=== PATIENT | male | born 1965 | race African-American/Black ===

== ENCOUNTER 2018-08-13 15:53 | Inpatient (IN) | payer OTHER ==
[2018-08-13 17:28] VITALS: BMI 38.9
--- NOTE | 2018-08-13 20:15 | HP ---
Admission ROS [facility] Chief Complaint: Alcohol dependent patient seeking admission to Rehab. Allergies/Adverse Reactions: Allergies Allergy/AdvReac Type Severity Reaction Status Date / Time No Known Allergies Allergy Verified 09/15/14 16:42 History of Present Illness: 52 years old male with a history of alcohol dependence is seeking admission to Rehab. Patient has been in previous [facility]. and reports 3 years of sobriety. He has medical history of DM type 2, hypertension, hyperlipidemia, DVT, seizures, anxiety and depression. He denies suicide attempt and suicidal ideation at this time. Patient is status post detox at [facility]. Exam Limitations: No Limitations - Ebola screening Have you traveled outside of the country in the last 21 days: No Have you had contact with anyone from an Ebola affected area: No Have you been sick,other than usual withdrawal symptoms: No Do you have a fever: No - Review of Systems Constitutional: No Symptoms Reported EENT: reports: No Symptoms Reported Respiratory: reports: No Symptoms reported Cardiac: reports: No Symptoms Reported GI: reports: No Symptoms Reported : reports: No Symptoms Reported Musculoskeletal: reports: No Symptoms Reported Integumentary: reports: No Symptoms Reported Neuro: reports: No Symptoms reported Endocrine: reports: No Symptoms Reported Hematology: reports: No Symptoms Reported Psychiatric: reports: No Sypmtoms Reported, Mood/Affect Appropiate, Orientated x3 Other Systems: Reviewed and Negative Patient History - Patient Medical History Hx Anemia: No Hx Asthma: No Hx Chronic Obstructive Pulmonary Disease (COPD): No Hx Cancer: No Hx Cardiac Disorders: No Hx Congestive Heart Failure: No Hx Hypertension: Yes (Amlodipine) Hx Hypercholesterolemia: Yes (Lipitor) Hx Pacemaker: No HX Cerebrovascular Accident: No Hx Seizures: Yes (Not on medication) Hx Dementia: No Hx Diabetes: Yes (Metformin, Lantus Insulin) Hx Gastrointestinal Disorders: No Hx Liver Disease: No Hx Genitourinary Disorders: No Hx Sexually Transmitted Disorders: No Hx Renal Disease (ESRD): No Hx Thyroid Disease: No Hx Human Immunodeficiency Virus (HIV): No (Negative 2017) Hx Hepatitis C: No Hx Depression: Yes Hx Suicide Attempt: No (Denies suicide attempt or suicidal ideation at this time ) Hx Bipolar Disorder: No (Zoloft, Remeron, Trazodone, Benadryl) Hx Schizophrenia: No (Zoloft, Remeron, Trazodone, Benadry) Other Medical History: Anxiety - Not on medication - Patient Surgical History Past Surgical History: Yes Other Surgical History: LEFT ANKLE SURGERY IN 2004 Anesthesia Reaction: No - PPD History Previous Implant?: No Documented Results: Negative w/proof Date: 09/17/14 PPD to be Administered?: Yes - Reproductive History Patient is a Female of Child Bearing Age (11 -55 yrs old): No (Male) - Smoking Cessation Smoking history: Current every day smoker Have you smoked in the past 12 months: Yes Aproximately how many cigarettes per day: 10 Hx Chewing Tobacco Use: No Initiated information on smoking cessation: Yes 'Breaking Loose' booklet given: 08/13/18 - Substance & Tx. History Hx Alcohol Use: Yes Hx Substance Use: Yes Substance Use Type: Alcohol, Cocaine, Heroin, Marijuana, Opiates Family Disease History - Family Disease History Family History: Denies Admission Physical Exam BHS - Vital Signs Vital Signs: Vital Signs - 24 hr 08/13/18 17:25 Temperature 98.1 F Pulse Rate 110 H Respiratory 22 Rate Blood Pressure 156/93 - Physical General Appearance: Yes: No Apparent Distress, Nourished, Appropriately Dressed HEENTM: Yes: EOMI, Normal ENT Inspection, Normocephalic, Normal Voice, SCOOBY Respiratory: Yes: Lungs Clear, Normal Breath Sounds, No Respiratory Distress Neck: Yes: Supple Breast: Yes: Breast Exam Deferred Cardiology: Yes: Regular Rhythm, Regular Rate Abdominal: Yes: Normal Bowel Sounds, Soft Genitourinary: Yes: Within Normal Limits Back: Yes: Normal Inspection Musculoskeletal: Yes: full range of Motion, Back pain Extremities: Yes: Normal Inspection 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, Normal Mood/Affect Integumentary: Yes: Warm Lymphatic: Yes: Within Normal Limits - Diagnostic (1) Nicotine dependence Current Visit: Yes Status: Chronic (2) Seizures Current Visit: Yes Status: Chronic (3) Syncope Current Visit: Yes Status: Chronic (4) Alcohol dependence Current Visit: Yes Status: Chronic Qualifiers: Substance use status: uncomplicated Qualified Code(s): F10.20 - Alcohol dependence, uncomplicated (5) Cocaine dependence Current Visit: Yes Status: Chronic (6) Essential (primary) hypertension Current Visit: Yes Status: Chronic (7) Hyperlipidemia Current Visit: Yes Status: Chronic (8) Type 2 diabetes mellitus Current Visit: Yes Status: Chronic BHS Breath Alcohol Content Breath Alcohol Content: 0.016 Urine Drug Screen - Results Drug Screen Negative: No Urine Drug Screen Results: BZO-Benzodiazepines Inpatient Rehab Admission - Initial Determination Are CD services needed?: Yes Free of communicable disease: Yes Not in need of hospitalization: Yes - Rehab Admission Criteria Previous failed treatment: Yes Poor recovery environment: Yes Comorbidities: Yes Lacks judgement: No Patient is meeting Inpatient Rehab admission criteria:: Yes
[2018-08-13] MEDS ORDERED: IBUPROFEN 400 MG TABLET (FP) PO PRN (20:28)
[2018-08-13] MEDS ORDERED: MAGNESIUM CITRATE 300 ML BOTTLE PO PRN (20:28)
[2018-08-13] MEDS ORDERED: NICOTINE POLACRILEX 2 MG GUM BUC PRN (20:28)
[2018-08-13] MEDS ORDERED: LOPERAMIDE HCL 2 MG CAPSULE PO PRN (20:28)
[2018-08-13] MEDS ORDERED: P-EPHED 60MG/TRIPROLIDI 2.5MG TABLET PO PRN (20:28)
[2018-08-13] MEDS ORDERED: ACETAMINOPHEN 325 MG TABLET (FP) PO PRN (20:28)
[2018-08-13] MEDS ORDERED: MENTHOL/PHENOL 1 EACH UD MM PRN (20:28)
[2018-08-13] MEDS ORDERED: TUBERCULIN PPD 5 TU/0.1ML VIAL ID ONE (23:30)
[2018-08-13] MEDS: ATORVASTATIN CA 20 MG TABLET (FP) PO SCH (23:31)
[2018-08-13] MEDS: THIAMINE HCL 100 MG TABLET (FP) PO SCH (23:31)
[2018-08-14 03:29] LABS: URINE APPEARANCE SLCLOUDY; URINE BILIRUBIN NEGATIVE (<2.0 mg/dL); URINE COLOR YELLOW; URINE GLUCOSE (UA) 3+ (NEGATIVE); URINE KETONE NEGATIVE (NEGATIVE); URINE LEUK ESTERASE NEGATIVE (NEGATIVE); URINE NITRITE NEGATIVE (NEGATIVE); URINE PROTEIN NEGATIVE (NEGATIVE); URINE UROBILINOGEN NEGATIVE mg/dL (0.2-1.0)
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
[2018-08-14] MEDS: metFORMIN HCL 500 MG TABLET (FP) PO SCH ×2 (06:23→16:51)
[2018-08-14] MEDS: ASPIRIN COATED 81 MG TABLET.EC PO SCH (06:23)
[2018-08-14] MEDS: LISINOPRIL 10 MG TABLET (FP) PO SCH (06:23)
--- NOTE | 2018-08-14 08:01 | EKG ---
Test Reason : Blood Pressure : / mmHG Vent. Rate : 088 BPM Atrial Rate : 088 BPM P-R Int : 146 ms QRS Dur : 078 ms QT Int : 344 ms P-R-T Axes : 063 035 048 degrees QTc Int : 416 ms NORMAL SINUS RHYTHM NORMAL ECG NO PREVIOUS ECGS AVAILABLE Confirmed by JESUS BA, SUAD ([id number]) on 08/14/2018 8:01:33 AM Referred By: Confirmed By:SUAD LEE MD
[2018-08-14] MEDS: NICOTINE 14 MG/24 HOURS TOPICAL PATCH TD SCH (10:13)
[2018-08-14] MEDS: PRENATAL VITAMINS W/ FOLIC ACID TABLET (FP) PO SCH (10:13)
[2018-08-14] MEDS: HYDROCHLOROTHIAZIDE 25 MG TABLET (FP) PO SCH (10:13)
[2018-08-14 10:24] LABS: INR 1.64 (0.83-1.09); PROTHROMBIN TIME (PATIENT) 18.5 SEC (9.7-13.0)
[2018-08-14 10:26] LABS: ACTIVATED PTT 34.5 SECONDS (25.2-36.5)
[2018-08-14 10:28] LABS: HEMATOCRIT 40.9 % (35.4-49); HEMOGLOBIN 13.3 GM/dL (11.7-16.9); MCHC 32.4 g/dl (32.0-35.9); MEAN CELL VOLUME 92.6 fl (80-96); PLATELET COUNT 211 K/MM3 (134-434); RBC 4.42 M/mm3 (4.00-5.60); RDW 15.7 % (11.9-15.9); WHITE BLOOD COUNT 4.4 K/mm3 (4.0-10.0)
[2018-08-14 10:51] LABS: ALBUMIN 3.5 g/dl (3.4-5.0); ALK PHOS 126 U/L (45-117); ANION GAP 10 MMOL/L (8-16); BILIRUBIN,TOTAL 0.4 mg/dL (0.2-1); BLOOD UREA NITROGEN 10 mg/dL (7-18); CALCIUM 9.1 mg/dL (8.5-10.1); CHLORIDE 102 mmol/L (98-107); CO2 25 mmol/L (21-32); POTASSIUM 4.3 mmol/L (3.5-5.1); SGOT/AST 27 U/L (15-37); SGPT/ALT 50 U/L (13-61); SODIUM 137 mmol/L (136-145); TOT PROT 7.2 g/dl (6.4-8.2)
[2018-08-14 11:08] LABS: GLUCOSE,RANDOM 328 mg/dL (74-106)
[2018-08-14] MEDS: SERTRALINE HCL 50 MG TABLET (FP) PO SCH (12:00)
[2018-08-14 14:49] LABS: RPR REACTIVE 1:4 (NONREACTIVE)
[2018-08-14 14:50] LABS: TREPONEMA ANTIBODY PREVIOUSLY REACTIVE (NONREACTIVE)
--- NOTE | 2018-08-14 15:37 | PN ---
BHS Progress Note (SOAP) Subjective: Hx: DM: Patient states was taking Lantus 40 units daily in the evening while incarcerated. States when released from nursing home, relapsed and then ended up in [place] detox. At that time patient was not put back on Lantus but on coverage 4 times a day w/ the metformin. Hx. DVT in (R) leg. States chronic throbbing pain in (R) from ankle to calf. Was taking Coumadin daily. States continued on Coumadin while in detox. Denies chest pain. Patient states hx syphilis treated years ago. Objective: 08/14/18 15:37 A & O x 3. (R) leg w/ leathery darkened skin texture. Pedal pulses present. Vital Signs - 24 hr 08/13/18 08/14/18 08/14/18 17:25 00:30 03:30 Temperature 98.1 F Pulse Rate 110 H Respiratory 22 16 16 Rate Blood Pressure 156/93 08/14/18 08/14/18 07:07 10:00 Temperature 98 F Pulse Rate 74 83 Respiratory 18 18 Rate Blood Pressure 139/78 124/77 Abnormal Lab Results 08/13/18 08/14/18 08/14/18 23:25 08:30 08:30 PT with INR INR Random Glucose 328 H* Alkaline Phosphatase 126 H Urine Glucose (UA) 3+ H RPR Titer Reactive 1:4 H 08/14/18 08:30 PT with INR 18.50 H INR 1.64 H Random Glucose Alkaline Phosphatase Urine Glucose (UA) RPR Titer Labs reviewed Was admitted to [facility] in 2013 and RPR was 1:4. Current RPR is 1:4. Assessment: Was admitted to [facility] in 2013 and RPR was 1:4. Current RPR is 1:4. - No medication treatment needed based on Hx Hx: DVT. Plan: Start Coumadin Repeat INR/PT every other day. Patient instructed to notify staff of any bleeding Start Insulin glargine - start low and taper up as necessary Continue Metformin. BGM ACHS. Start Novalog sliding scale
[2018-08-14] MEDS ORDERED: INSULIN SLIDING SCALE (NOVOLOG) 1 VIAL SQ SCH (16:30)
[2018-08-14] MEDS: INSULIN SLIDING SCALE (NOVOLOG) 1 VIAL SQ SCH ×2 (16:52→21:41)
[2018-08-14] MEDS: WARFARIN NA 5 MG TABLET (UD) PO SCH (17:02)
[2018-08-14] MEDS ORDERED: MIRTAZAPINE 15 MG TABLET (FP) ONE (21:03)
[2018-08-14] MEDS ORDERED: MIRTAZAPINE 30 MG TABLET (FP) PO ONE (21:04)
[2018-08-14] MEDS: MIRTAZAPINE 30 MG, MIRTAZAPINE 15 MG PO SCH (21:41)
[2018-08-14] MEDS: THIAMINE HCL 100 MG TABLET (FP) PO SCH (21:41)
[2018-08-14] MEDS: ATORVASTATIN CA 20 MG TABLET (FP) PO SCH (21:41)
[2018-08-14] MEDS: MELATONIN 5 MG TABLETS PO PRN (21:41)
[2018-08-14] MEDS: INSULIN (LEVEMIR) 100 UNITS/ML UNITS SQ SCH (21:42)
[2018-08-14] MEDS ORDERED: MIRTAZAPINE 30 MG TABLET (FP) PO SCH (22:00)
[2018-08-14] MEDS ORDERED: INSULIN (NOVOLOG) ASPART 100 UNITS/ML 10ML VIAL ONE (22:21)
[2018-08-15] MEDS: LISINOPRIL 10 MG TABLET (FP) PO SCH (06:14)
[2018-08-15] MEDS: INSULIN SLIDING SCALE (NOVOLOG) 1 VIAL SQ SCH ×4 (06:14→21:29)
[2018-08-15] MEDS: metFORMIN HCL 500 MG TABLET (FP) PO SCH ×2 (06:14→16:51)
[2018-08-15] MEDS: ASPIRIN COATED 81 MG TABLET.EC PO SCH (06:14)
[2018-08-15] MEDS: NICOTINE 14 MG/24 HOURS TOPICAL PATCH TD SCH (09:48)
[2018-08-15] MEDS: PRENATAL VITAMINS W/ FOLIC ACID TABLET (FP) PO SCH (09:48)
[2018-08-15] MEDS: HYDROCHLOROTHIAZIDE 25 MG TABLET (FP) PO SCH (09:49)
[2018-08-15] MEDS: SERTRALINE HCL 50 MG TABLET (FP) PO SCH (09:49)
[2018-08-15] MEDS: MAG HYDROX/AL HYDROX/SIMETH 30 ML UNIT-DOSE CUP PO PRN (09:50)
[2018-08-15] MEDS ORDERED: INSULIN (NOVOLOG) ASPART 100 UNITS/ML 10ML VIAL SQ ONE (11:46)
--- NOTE | 2018-08-15 11:55 | PN ---
BHS Progress Note Note: 10units Novolog ordered STAT for pt's POC 428mg/dl. The need to maintain no concentrated sugar diet and avoiding juices will be reiterated with pt
[2018-08-15] MEDS: guaiFENesin/D-METHORPHAN HB 10 ML UNIT-DOSE CUPS PO PRN (16:56)
[2018-08-15] MEDS: WARFARIN NA 5 MG TABLET (UD) PO SCH (16:59)
[2018-08-15] MEDS ORDERED: MIRTAZAPINE 30 MG TABLET (FP) PO ONE (19:57)
[2018-08-15] MEDS ORDERED: MIRTAZAPINE 15 MG TABLET (FP) ONE (19:57)
[2018-08-15] MEDS: INSULIN (LEVEMIR) 100 UNITS/ML UNITS SQ SCH (21:29)
[2018-08-15] MEDS: MELATONIN 5 MG TABLETS PO PRN (21:30)
[2018-08-15] MEDS: MIRTAZAPINE 30 MG, MIRTAZAPINE 15 MG PO SCH (21:30)
[2018-08-15] MEDS: THIAMINE HCL 100 MG TABLET (FP) PO SCH (21:30)
[2018-08-15] MEDS: ATORVASTATIN CA 20 MG TABLET (FP) PO SCH (21:30)
[2018-08-16] MEDS: ASPIRIN COATED 81 MG TABLET.EC PO SCH (06:22)
[2018-08-16] MEDS: metFORMIN HCL 500 MG TABLET (FP) PO SCH ×2 (06:22→16:29)
[2018-08-16] MEDS: LISINOPRIL 10 MG TABLET (FP) PO SCH (06:22)
[2018-08-16] MEDS: INSULIN SLIDING SCALE (NOVOLOG) 1 VIAL SQ SCH ×4 (06:24→21:15)
[2018-08-16] MEDS: MAG HYDROX/AL HYDROX/SIMETH 30 ML UNIT-DOSE CUP PO PRN (07:41)
[2018-08-16] MEDS: HYDROCHLOROTHIAZIDE 25 MG TABLET (FP) PO SCH (09:50)
[2018-08-16] MEDS: NICOTINE 14 MG/24 HOURS TOPICAL PATCH TD SCH (09:50)
[2018-08-16] MEDS: SERTRALINE HCL 50 MG TABLET (FP) PO SCH (09:50)
[2018-08-16] MEDS: PRENATAL VITAMINS W/ FOLIC ACID TABLET (FP) PO SCH (09:50)
[2018-08-16 10:27] LABS: INR 2.12 (0.83-1.09)
[2018-08-16] MEDS ORDERED: INSULIN (NOVOLOG) ASPART 100 UNITS/ML 10ML VIAL SQ ONE (12:02)
[2018-08-16] MEDS ORDERED: INSULIN (NOVOLOG) ASPART 100 UNITS/ML 10ML VIAL ONE (16:29)
[2018-08-16] MEDS: WARFARIN NA 5 MG TABLET (UD) PO SCH (17:07)
[2018-08-16] MEDS ORDERED: MIRTAZAPINE 15 MG TABLET (FP) ONE (19:00)
[2018-08-16] MEDS ORDERED: MIRTAZAPINE 30 MG TABLET (FP) PO ONE (19:00)
[2018-08-16] MEDS: INSULIN (LEVEMIR) 100 UNITS/ML UNITS SQ SCH (21:14)
[2018-08-16] MEDS: ATORVASTATIN CA 20 MG TABLET (FP) PO SCH (21:15)
[2018-08-16] MEDS: MIRTAZAPINE 30 MG, MIRTAZAPINE 15 MG PO SCH (21:15)
[2018-08-16] MEDS: THIAMINE HCL 100 MG TABLET (FP) PO SCH (21:17)
[2018-08-16] MEDS: MELATONIN 5 MG TABLETS PO PRN (21:18)
[2018-08-16] MEDS: guaiFENesin/D-METHORPHAN HB 10 ML UNIT-DOSE CUPS PO PRN (21:18)
[2018-08-17] MEDS: ASPIRIN COATED 81 MG TABLET.EC PO SCH (06:06)
[2018-08-17] MEDS: LISINOPRIL 10 MG TABLET (FP) PO SCH (06:06)
[2018-08-17] MEDS ORDERED: INSULIN (NOVOLOG) ASPART 100 UNITS/ML 10ML VIAL ONE ×3 (07:14→22:18)
[2018-08-17] MEDS: INSULIN SLIDING SCALE (NOVOLOG) 1 VIAL SQ SCH ×4 (07:15→21:11)
[2018-08-17] MEDS: metFORMIN HCL 500 MG TABLET (FP) PO SCH ×2 (07:15→16:46)
[2018-08-17] MEDS: HYDROCHLOROTHIAZIDE 25 MG TABLET (FP) PO SCH (10:17)
[2018-08-17] MEDS: PRENATAL VITAMINS W/ FOLIC ACID TABLET (FP) PO SCH (10:17)
[2018-08-17] MEDS: SERTRALINE HCL 50 MG TABLET (FP) PO SCH (10:17)
[2018-08-17] MEDS: NICOTINE 14 MG/24 HOURS TOPICAL PATCH TD SCH (10:17)
[2018-08-17] MEDS: MAG HYDROX/AL HYDROX/SIMETH 30 ML UNIT-DOSE CUP PO PRN (11:57)
[2018-08-17] MEDS: WARFARIN NA 5 MG TABLET (UD) PO SCH (17:06)
[2018-08-17] MEDS ORDERED: MIRTAZAPINE 15 MG TABLET (FP) ONE (19:48)
[2018-08-17] MEDS ORDERED: MIRTAZAPINE 30 MG TABLET (FP) PO ONE (19:48)
[2018-08-17] MEDS: INSULIN (LEVEMIR) 100 UNITS/ML UNITS SQ SCH (21:11)
[2018-08-17] MEDS: THIAMINE HCL 100 MG TABLET (FP) PO SCH (21:12)
[2018-08-17] MEDS: MELATONIN 5 MG TABLETS PO PRN (21:12)
[2018-08-17] MEDS: MIRTAZAPINE 30 MG, MIRTAZAPINE 15 MG PO SCH (21:12)
[2018-08-17] MEDS: ATORVASTATIN CA 20 MG TABLET (FP) PO SCH (21:12)
[2018-08-18] MEDS: MAG HYDROX/AL HYDROX/SIMETH 30 ML UNIT-DOSE CUP PO PRN (02:45)
[2018-08-18] MEDS: LISINOPRIL 10 MG TABLET (FP) PO SCH (06:21)
[2018-08-18] MEDS: ASPIRIN COATED 81 MG TABLET.EC PO SCH (06:26)
[2018-08-18] MEDS ORDERED: INSULIN (NOVOLOG) ASPART 100 UNITS/ML 10ML VIAL ONE ×3 (07:06→22:17)
[2018-08-18] MEDS: metFORMIN HCL 500 MG TABLET (FP) PO SCH ×2 (07:06→16:51)
[2018-08-18] MEDS: INSULIN SLIDING SCALE (NOVOLOG) 1 VIAL SQ SCH ×4 (07:06→21:26)
--- NOTE | 2018-08-18 09:13 | PN ---
BHS Progress Note Note: c/o generalized abdominal discomfort with gas. Mylanta with minimal relief. Reports BM yesterday. denies n/v/d. Abdomen: soft, tender to palpate on all quadrants. Slightly distended. Pt with fatty abdomen. impression:dyspepsia plan:simethicone 80 mg po qid prn d/c mylanta
[2018-08-18] MEDS: HYDROCHLOROTHIAZIDE 25 MG TABLET (FP) PO SCH (09:52)
[2018-08-18] MEDS: SERTRALINE HCL 50 MG TABLET (FP) PO SCH (09:52)
[2018-08-18] MEDS: NICOTINE 14 MG/24 HOURS TOPICAL PATCH TD SCH (09:53)
[2018-08-18] MEDS: PRENATAL VITAMINS W/ FOLIC ACID TABLET (FP) PO SCH (09:53)
[2018-08-18 10:51] LABS: INR 2.05 (0.83-1.09); PROTHROMBIN TIME (PATIENT) 23.2 SEC (9.7-13.0)
--- NOTE | 2018-08-18 17:31 | PN ---
[facility] Progress Note Note: Vital Signs Temperature 97.9 F 08/18/18 07:05 Pulse Rate 90 08/18/18 09:30 Respiratory Rate 18 08/18/18 07:05 Blood Pressure 124/82 08/18/18 09:30 O2 Sat by Pulse Oximetry (%) Laboratory Last Values WBC 4.4 K/mm3 (4.0-10.0) 08/14/18 08:30 RBC 4.42 M/mm3 (4.00-5.60) 08/14/18 08:30 Hgb 13.3 GM/dL (11.7-16.9) 08/14/18 08:30 Hct 40.9 % (35.4-49) 08/14/18 08:30 MCV 92.6 fl (80-96) 08/14/18 08:30 MCH 30.0 pg (25.7-33.7) D 08/14/18 08:30 MCHC 32.4 g/dl (32.0-35.9) 08/14/18 08:30 RDW 15.7 % (11.9-15.9) D 08/14/18 08:30 Plt Count 211 K/MM3 (134-434) 08/14/18 08:30 MPV 9.0 fl (7.5-11.1) 08/14/18 08:30 PT with INR 23.20 SEC (9.7-13.0) H 08/18/18 07:00 INR 2.05 (0.83-1.09) H 08/18/18 07:00 PTT (Actin FS) 34.5 SECONDS (25.2-36.5) 08/14/18 08:30 Sodium 137 mmol/L (136-145) 08/14/18 08:30 Potassium 4.3 mmol/L (3.5-5.1) 08/14/18 08:30 Chloride 102 mmol/L (98-107) 08/14/18 08:30 Carbon Dioxide 25 mmol/L (21-32) 08/14/18 08:30 Anion Gap 10 MMOL/L (8-16) 08/14/18 08:30 BUN 10 mg/dL (7-18) 08/14/18 08:30 Creatinine 1.0 mg/dL (0.55-1.3) 08/14/18 08:30 Creat Clearance w eGFR > 60 (>60) 08/14/18 08:30 POC Glucometer 292 UNITS (80-120) 08/18/18 16:50 Random Glucose 328 mg/dL (74-106) H* 08/14/18 08:30 Calcium 9.1 mg/dL (8.5-10.1) 08/14/18 08:30 Total Bilirubin 0.4 mg/dL (0.2-1) 08/14/18 08:30 AST 27 U/L (15-37) 08/14/18 08:30 ALT 50 U/L (13-61) 08/14/18 08:30 Alkaline Phosphatase 126 U/L (45-117) H 08/14/18 08:30 Total Protein 7.2 g/dl (6.4-8.2) 08/14/18 08:30 Albumin 3.5 g/dl (3.4-5.0) 08/14/18 08:30 Urine Color Yellow 08/13/18 23:25 Urine Appearance Slcloudy 08/13/18 23:25 Urine pH 5.0 (5.0-8.0) 08/13/18 23:25 Ur Specific [place] 1.027 (1.001-1.035) 08/13/18 23:25 Urine Protein Negative (NEGATIVE) 08/13/18 23:25 Urine Glucose (UA) 3+ (NEGATIVE) H 08/13/18 23:25 Urine Ketones Negative (NEGATIVE) 08/13/18 23:25 Urine Blood Negative (NEGATIVE) 08/13/18 23:25 Urine Nitrite Negative (NEGATIVE) 08/13/18 23:25 Urine Bilirubin Negative (<2.0 mg/dL) 08/13/18 23:25 Urine Urobilinogen Negative mg/dL (0.2-1.0) 08/13/18 23:25 Ur Leukocyte Esterase Negative (NEGATIVE) 08/13/18 23:25 RPR Titer Reactive 1:4 (NONREACTIVE) H 08/14/18 08:30 T.pallidum Ab ([facility]) Previously reactive (NONREACTIVE) 08/14/18 08:30 INR within therapeutic range (2-3) continue INR/PT every other day. Patient instructed to notify staff of any bleeding continue to monitor
[2018-08-18] MEDS: WARFARIN NA 5 MG TABLET (UD) PO SCH (17:36)
[2018-08-18] MEDS ORDERED: MIRTAZAPINE 15 MG TABLET (FP) ONE (19:53)
[2018-08-18] MEDS ORDERED: MIRTAZAPINE 30 MG TABLET (FP) PO ONE (19:53)
[2018-08-18] MEDS: THIAMINE HCL 100 MG TABLET (FP) PO SCH (21:23)
[2018-08-18] MEDS: ATORVASTATIN CA 20 MG TABLET (FP) PO SCH (21:24)
[2018-08-18] MEDS: MELATONIN 5 MG TABLETS PO PRN (21:24)
[2018-08-18] MEDS: MIRTAZAPINE 30 MG, MIRTAZAPINE 15 MG PO SCH (21:24)
[2018-08-18] MEDS: INSULIN (LEVEMIR) 100 UNITS/ML UNITS SQ SCH (21:25)
[2018-08-18] MEDS: SIMETHICONE 80 MG TAB.CHEW (FP) PO PRN (21:27)
[2018-08-19] MEDS: SIMETHICONE 80 MG TAB.CHEW (FP) PO PRN (04:09)
[2018-08-19] MEDS: ASPIRIN COATED 81 MG TABLET.EC PO SCH (06:06)
[2018-08-19] MEDS: LISINOPRIL 10 MG TABLET (FP) PO SCH (06:06)
[2018-08-19] MEDS: MAGNESIUM HYDROX 2400MG/30ML ORAL SUSPENSION 30 ML CUP PO PRN ×2 (06:08→17:56)
[2018-08-19] MEDS ORDERED: INSULIN (NOVOLOG) ASPART 100 UNITS/ML 10ML VIAL ONE ×3 (07:04→17:00)
[2018-08-19] MEDS: metFORMIN HCL 500 MG TABLET (FP) PO SCH ×2 (07:05→16:43)
[2018-08-19] MEDS: INSULIN SLIDING SCALE (NOVOLOG) 1 VIAL SQ SCH ×4 (07:05→21:46)
[2018-08-19] MEDS: SERTRALINE HCL 50 MG TABLET (FP) PO SCH (09:54)
[2018-08-19] MEDS: HYDROCHLOROTHIAZIDE 25 MG TABLET (FP) PO SCH (09:54)
[2018-08-19] MEDS: PRENATAL VITAMINS W/ FOLIC ACID TABLET (FP) PO SCH (09:54)
[2018-08-19] MEDS: NICOTINE 14 MG/24 HOURS TOPICAL PATCH TD SCH (09:54)
--- NOTE | 2018-08-19 13:51 | PN ---
BHS Progress Note Note: PT REQUESTING SIMETHICONE CHANGE BACK TO MYLANTA. D/C SIMETHICONE REORDER MYLANTA DIRECTED.
[2018-08-19] MEDS: MAG HYDROX/AL HYDROX/SIMETH 30 ML UNIT-DOSE CUP PO PRN (14:55)
[2018-08-19] MEDS: WARFARIN NA 5 MG TABLET (UD) PO SCH (17:56)
[2018-08-19] MEDS ORDERED: MIRTAZAPINE 15 MG TABLET (FP) ONE (18:45)
[2018-08-19] MEDS ORDERED: MIRTAZAPINE 30 MG TABLET (FP) PO ONE (18:45)
[2018-08-19] MEDS: ATORVASTATIN CA 20 MG TABLET (FP) PO SCH (21:45)
[2018-08-19] MEDS: MIRTAZAPINE 30 MG, MIRTAZAPINE 15 MG PO SCH (21:45)
[2018-08-19] MEDS: INSULIN (LEVEMIR) 100 UNITS/ML UNITS SQ SCH (21:45)
[2018-08-19] MEDS: THIAMINE HCL 100 MG TABLET (FP) PO SCH (21:45)
[2018-08-19] MEDS: MELATONIN 5 MG TABLETS PO PRN (21:45)
[2018-08-20] MEDS: MAG HYDROX/AL HYDROX/SIMETH 30 ML UNIT-DOSE CUP PO PRN (05:07)
[2018-08-20] MEDS: LISINOPRIL 10 MG TABLET (FP) PO SCH (06:40)
[2018-08-20] MEDS: ASPIRIN COATED 81 MG TABLET.EC PO SCH (06:40)
[2018-08-20] MEDS: metFORMIN HCL 500 MG TABLET (FP) PO SCH ×2 (06:40→20:07)
[2018-08-20] MEDS: INSULIN SLIDING SCALE (NOVOLOG) 1 VIAL SQ SCH ×4 (06:42→21:04)
--- NOTE | 2018-08-20 09:26 | PN ---
[facility] Progress Note (SOAP) Subjective: 52 Y/O MALE ADMITTED AT [facility] FOR REHAB WITH A HX OF ALCOHOL AND MARIJUANA. PT HAS PAST MEDICAL HX OF HTN,DM, DVT,PE AND HYPERLIPIDEMIA. PT ON MEDS(SEE HOME MEDS). PT C/O SEVERE ABDOMINAL PAIN X 1 WEEK. UNABLE TO SLEEP LAST NIGHT DUE TO EXCRUCIATING PAIN. PT REPORTS MYLANTA OR ZANTAC DID NOT ALLEVIATE SYMPTOMS. REPORTS NBM+ LAST NIGHT.DENIES DIARRHEA BUT NAUSEA AND DRY HEAVES THIS MORNING. REPORTS A LITTLE BIT OF GASSY ABDOMEN. PT REPORTS CHILLS BUT NO FEVER. Objective: 08/20/18 09:29 Vital Signs 08/20/18 08/20/18 03:30 07:03 Temperature 98.0 F Pulse Rate 81 Respiratory 16 18 Rate Blood Pressure 139/90 Laboratory Tests 08/13/18 08/14/18 08/14/18 23:25 06:23 08:30 WBC 4.4 RBC 4.42 Hgb 13.3 Hct 40.9 MCV 92.6 MCH 30.0 D MCHC 32.4 RDW 15.7 D Plt Count 211 MPV 9.0 PT with INR INR PTT (Actin FS) Sodium Potassium Chloride Carbon Dioxide Anion Gap BUN Creatinine Creat Clearance w eGFR POC Glucometer 326 Random Glucose Calcium Total Bilirubin AST ALT Alkaline Phosphatase Total Protein Albumin Urine Color Yellow Urine Appearance Slcloudy Urine pH 5.0 Ur Specific [place] 1.027 Urine Protein Negative Urine Glucose (UA) 3+ H Urine Ketones Negative Urine Blood Negative Urine Nitrite Negative Urine Bilirubin Negative Urine Urobilinogen Negative Ur Leukocyte Esterase Negative RPR Titer T.pallidum Ab ([facility]) 08/14/18 08/14/18 08/14/18 08:30 08:30 08:30 WBC RBC Hgb Hct MCV MCH MCHC RDW Plt Count MPV PT with INR 18.50 H INR 1.64 H PTT (Actin FS) 34.5 Sodium 137 Potassium 4.3 Chloride 102 Carbon Dioxide 25 Anion Gap 10 BUN 10 Creatinine 1.0 Creat Clearance w eGFR > 60 POC Glucometer Random Glucose 328 H* Calcium 9.1 Total Bilirubin 0.4 AST 27 ALT 50 Alkaline Phosphatase 126 H Total Protein 7.2 Albumin 3.5 Urine Color Urine Appearance Urine pH Ur Specific [place] Urine Protein Urine Glucose (UA) Urine Ketones Urine Blood Urine Nitrite Urine Bilirubin Urine Urobilinogen Ur Leukocyte Esterase RPR Titer Reactive 1:4 H T.pallidum Ab ([facility]) Previously reactive 08/14/18 08/14/18 08/15/18 16:50 21:38 06:13 WBC RBC Hgb Hct MCV MCH MCHC RDW Plt Count MPV PT with INR INR PTT (Actin FS) Sodium Potassium Chloride Carbon Dioxide Anion Gap BUN Creatinine Creat Clearance w eGFR POC Glucometer 431 312 294 Random Glucose Calcium Total Bilirubin AST ALT Alkaline Phosphatase Total Protein Albumin Urine Color Urine Appearance Urine pH Ur Specific [place] Urine Protein Urine Glucose (UA) Urine Ketones Urine Blood Urine Nitrite Urine Bilirubin Urine Urobilinogen Ur Leukocyte Esterase RPR Titer T.pallidum Ab ([facility]) 08/15/18 08/15/18 08/15/18 11:41 16:52 21:28 WBC RBC Hgb Hct MCV MCH MCHC RDW Plt Count MPV PT with INR INR PTT (Actin FS) Sodium Potassium Chloride Carbon Dioxide Anion Gap BUN Creatinine Creat Clearance w eGFR POC Glucometer 428 274 414 Random Glucose Calcium Total Bilirubin AST ALT Alkaline Phosphatase Total Protein Albumin Urine Color Urine Appearance Urine pH Ur Specific [place] Urine Protein Urine Glucose (UA) Urine Ketones Urine Blood Urine Nitrite Urine Bilirubin Urine Urobilinogen Ur Leukocyte Esterase RPR Titer T.pallidum Ab ([facility]) 08/16/18 08/16/18 08/16/18 06:21 07:30 11:34 WBC RBC Hgb Hct MCV MCH MCHC RDW Plt Count MPV PT with INR 24.00 H INR 2.12 H PTT (Actin FS) Sodium Potassium Chloride Carbon Dioxide Anion Gap BUN Creatinine Creat Clearance w eGFR POC Glucometer 286 410 Random Glucose Calcium Total Bilirubin AST ALT Alkaline Phosphatase Total Protein Albumin Urine Color Urine Appearance Urine pH Ur Specific [place] Urine Protein Urine Glucose (UA) Urine Ketones Urine Blood Urine Nitrite Urine Bilirubin Urine Urobilinogen Ur Leukocyte Esterase RPR Titer T.pallidum Ab (A) 08/16/18 08/16/18 08/17/18 16:27 21:12 06:05 WBC RBC Hgb Hct MCV MCH MCHC RDW Plt Count MPV PT with INR INR PTT (Actin FS) Sodium Potassium Chloride Carbon Dioxide Anion Gap BUN Creatinine Creat Clearance w eGFR POC Glucometer 292 362 251 Random Glucose Calcium Total Bilirubin AST ALT Alkaline Phosphatase Total Protein Albumin Urine Color Urine Appearance Urine pH Ur Specific [place] Urine Protein Urine Glucose (UA) Urine Ketones Urine Blood Urine Nitrite Urine Bilirubin Urine Urobilinogen Ur Leukocyte Esterase RPR Titer T.pallidum Ab ([facility]) 08/17/18 08/17/18 08/17/18 11:40 16:45 21:09 WBC RBC Hgb Hct MCV MCH MCHC RDW Plt Count MPV PT with INR INR PTT (Actin FS) Sodium Potassium Chloride Carbon Dioxide Anion Gap BUN Creatinine Creat Clearance w eGFR POC Glucometer 336 318 285 Random Glucose Calcium Total Bilirubin AST ALT Alkaline Phosphatase Total Protein Albumin Urine Color Urine Appearance Urine pH Ur Specific [place] Urine Protein Urine Glucose (UA) Urine Ketones Urine Blood Urine Nitrite Urine Bilirubin Urine Urobilinogen Ur Leukocyte Esterase RPR Titer T.pallidum Ab ([facility]) 08/18/18 08/18/18 08/18/18 06:22 07:00 11:24 WBC RBC Hgb Hct MCV MCH MCHC RDW Plt Count MPV PT with INR 23.20 H INR 2.05 H PTT (Actin FS) Sodium Potassium Chloride Carbon Dioxide Anion Gap BUN Creatinine Creat Clearance w eGFR POC Glucometer 261 384 Random Glucose Calcium Total Bilirubin AST ALT Alkaline Phosphatase Total Protein Albumin Urine Color Urine Appearance Urine pH Ur Specific [place] Urine Protein Urine Glucose (UA) Urine Ketones Urine Blood Urine Nitrite Urine Bilirubin Urine Urobilinogen Ur Leukocyte Esterase RPR Titer T.pallidum Ab ([facility]) 08/18/18 08/18/18 08/19/18 16:50 21:22 06:04 WBC RBC Hgb Hct MCV MCH MCHC RDW Plt Count MPV PT with INR INR PTT (Actin FS) Sodium Potassium Chloride Carbon Dioxide Anion Gap BUN Creatinine Creat Clearance w eGFR POC Glucometer 292 304 298 Random Glucose Calcium Total Bilirubin AST ALT Alkaline Phosphatase Total Protein Albumin Urine Color Urine Appearance Urine pH Ur Specific [place] Urine Protein Urine Glucose (UA) Urine Ketones Urine Blood Urine Nitrite Urine Bilirubin Urine Urobilinogen Ur Leukocyte Esterase RPR Titer T.pallidum Ab ([facility]) 08/19/18 08/19/18 08/19/18 11:29 16:42 21:43 WBC RBC Hgb Hct MCV MCH MCHC RDW Plt Count MPV PT with INR INR PTT (Actin FS) Sodium Potassium Chloride Carbon Dioxide Anion Gap BUN Creatinine Creat Clearance w eGFR POC Glucometer 435 240 375 Random Glucose Calcium Total Bilirubin AST ALT Alkaline Phosphatase Total Protein Albumin Urine Color Urine Appearance Urine pH Ur Specific [place] Urine Protein Urine Glucose (UA) Urine Ketones Urine Blood Urine Nitrite Urine Bilirubin Urine Urobilinogen Ur Leukocyte Esterase RPR Titer T.pallidum Ab ([facility]) 08/20/18 06:39 WBC RBC Hgb Hct MCV MCH MCHC RDW Plt Count MPV PT with INR INR PTT (Actin FS) Sodium Potassium Chloride Carbon Dioxide Anion Gap BUN Creatinine Creat Clearance w eGFR POC Glucometer 306 Random Glucose Calcium Total Bilirubin AST ALT Alkaline Phosphatase Total Protein Albumin Urine Color Urine Appearance Urine pH Ur Specific [place] Urine Protein Urine Glucose (UA) Urine Ketones Urine Blood Urine Nitrite Urine Bilirubin Urine Urobilinogen Ur Leukocyte Esterase RPR Titer T.pallidum Ab ([facility]) ABDOMEN:BS+ ALL QUADRANTS.SLIGHTLY HYPOACTIVE AND DISTENDED, PAIN ON PALPATION. Assessment: 08/20/18 09:29 SEVERE ABDOMINAL PAIN Plan: TRANSFER TO [facility] ER VIA AMBULANCE FOR EVALUATION AND POSSIBLE TREATMENT. SPOKE TO TRAV TRIANA AT THE ER AT ABOUT 10:00 A.M.
[2018-08-20] MEDS: PRENATAL VITAMINS W/ FOLIC ACID TABLET (FP) PO SCH (10:12)
[2018-08-20] MEDS: SERTRALINE HCL 50 MG TABLET (FP) PO SCH (10:12)
[2018-08-20] MEDS: HYDROCHLOROTHIAZIDE 25 MG TABLET (FP) PO SCH (10:12)
[2018-08-20] MEDS: NICOTINE 14 MG/24 HOURS TOPICAL PATCH TD SCH (10:12)
[2018-08-20 10:41] LABS: INR 2.27 (0.83-1.09); PROTHROMBIN TIME (PATIENT) 25.6 SEC (9.7-13.0)
--- NOTE | 2018-08-20 16:32 | PN ---
[facility] Progress Note Note: Vital Signs Temperature 98.2 F 08/20/18 10:00 Pulse Rate 90 08/20/18 10:00 Respiratory Rate 20 08/20/18 10:00 Blood Pressure 141/84 08/20/18 10:00 O2 Sat by Pulse Oximetry (%) Called received from Bearluci Castellanos, re: patient medically cleared from [facility] ED for mild pancreatitis. Patient to follow a liquid diet in the next 24 hours. Patient to resume rehab.
[2018-08-20] MEDS: WARFARIN NA 5 MG TABLET (UD) PO SCH (20:07)
[2018-08-20] MEDS ORDERED: MIRTAZAPINE 30 MG TABLET (FP) PO ONE (20:08)
[2018-08-20] MEDS ORDERED: MIRTAZAPINE 15 MG TABLET (FP) ONE (20:08)
[2018-08-20] MEDS: MELATONIN 5 MG TABLETS PO PRN (21:04)
[2018-08-20] MEDS: MIRTAZAPINE 30 MG, MIRTAZAPINE 15 MG PO SCH (21:04)
[2018-08-20] MEDS: THIAMINE HCL 100 MG TABLET (FP) PO SCH (21:04)
[2018-08-20] MEDS: ATORVASTATIN CA 20 MG TABLET (FP) PO SCH (21:04)
[2018-08-20] MEDS: INSULIN (LEVEMIR) 100 UNITS/ML UNITS SQ SCH (21:05)
[2018-08-21] MEDS: DOCUSATE SODIUM 100 MG CAPSULE (FP) PO SCH ×3 (06:24→22:17)
[2018-08-21] MEDS: metFORMIN HCL 500 MG TABLET (FP) PO SCH ×2 (06:24→17:03)
[2018-08-21] MEDS: ASPIRIN COATED 81 MG TABLET.EC PO SCH (06:24)
[2018-08-21] MEDS: LISINOPRIL 10 MG TABLET (FP) PO SCH (06:24)
[2018-08-21] MEDS: INSULIN SLIDING SCALE (NOVOLOG) 1 VIAL SQ SCH ×4 (06:26→22:22)
[2018-08-21] MEDS ORDERED: INSULIN (NOVOLOG) ASPART 100 UNITS/ML 10ML VIAL ONE ×3 (07:10→17:11)
[2018-08-21] MEDS: MAG HYDROX/AL HYDROX/SIMETH 30 ML UNIT-DOSE CUP PO PRN ×2 (08:14→17:05)
[2018-08-21] MEDS: SERTRALINE HCL 50 MG TABLET (FP) PO SCH (10:22)
[2018-08-21] MEDS: NICOTINE 14 MG/24 HOURS TOPICAL PATCH TD SCH (10:22)
[2018-08-21] MEDS: HYDROCHLOROTHIAZIDE 25 MG TABLET (FP) PO SCH (10:22)
[2018-08-21] MEDS: PRENATAL VITAMINS W/ FOLIC ACID TABLET (FP) PO SCH (10:22)
[2018-08-21] MEDS: WARFARIN NA 5 MG TABLET (UD) PO SCH (18:53)
[2018-08-21] MEDS ORDERED: MIRTAZAPINE 30 MG TABLET (FP) PO ONE (20:16)
[2018-08-21] MEDS ORDERED: MIRTAZAPINE 15 MG TABLET (FP) ONE (20:16)
[2018-08-21] MEDS: ACETAMINOPHEN 325 MG TABLET (FP) PO PRN (20:18)
[2018-08-21] MEDS: ATORVASTATIN CA 20 MG TABLET (FP) PO SCH (22:17)
[2018-08-21] MEDS: MIRTAZAPINE 30 MG, MIRTAZAPINE 15 MG PO SCH (22:17)
[2018-08-21] MEDS: RANITIDINE HCL 150 MG TABLET (FP) PO SCH (22:17)
[2018-08-21] MEDS: INSULIN (LEVEMIR) 100 UNITS/ML UNITS SQ SCH (22:22)
[2018-08-21] MEDS ORDERED: INSULIN (LEVEMIR) 100 UNITS/ML UNITS SQ ONE (22:22)
[2018-08-21] MEDS: THIAMINE HCL 100 MG TABLET (FP) PO SCH (22:22)
[2018-08-22] MEDS: ACETAMINOPHEN 325 MG TABLET (FP) PO PRN ×4 (00:20→21:09)
[2018-08-22] MEDS: DOCUSATE SODIUM 100 MG CAPSULE (FP) PO SCH ×3 (05:58→21:08)
[2018-08-22] MEDS: MAG HYDROX/AL HYDROX/SIMETH 30 ML UNIT-DOSE CUP PO PRN ×2 (05:59→17:50)
[2018-08-22] MEDS: LISINOPRIL 10 MG TABLET (FP) PO SCH (06:00)
[2018-08-22] MEDS: ASPIRIN COATED 81 MG TABLET.EC PO SCH (06:00)
[2018-08-22] MEDS: metFORMIN HCL 500 MG TABLET (FP) PO SCH ×2 (07:11→16:53)
[2018-08-22] MEDS ORDERED: INSULIN (NOVOLOG) ASPART 100 UNITS/ML 10ML VIAL ONE ×2 (07:11→11:55)
[2018-08-22] MEDS: INSULIN SLIDING SCALE (NOVOLOG) 1 VIAL SQ SCH ×4 (07:11→21:08)
[2018-08-22] MEDS: HYDROCHLOROTHIAZIDE 25 MG TABLET (FP) PO SCH (09:10)
[2018-08-22] MEDS: RANITIDINE HCL 150 MG TABLET (FP) PO SCH ×2 (09:10→21:08)
[2018-08-22] MEDS: SERTRALINE HCL 50 MG TABLET (FP) PO SCH (09:10)
[2018-08-22] MEDS: NICOTINE 14 MG/24 HOURS TOPICAL PATCH TD SCH (09:11)
[2018-08-22] MEDS: PRENATAL VITAMINS W/ FOLIC ACID TABLET (FP) PO SCH (09:11)
[2018-08-22 11:44] LABS: INR 1.8 (0.83-1.09); PROTHROMBIN TIME (PATIENT) 21.4 SEC (9.7-13.0)
[2018-08-22] MEDS: WARFARIN NA 5 MG TABLET (UD) PO SCH (17:06)
[2018-08-22] MEDS ORDERED: MIRTAZAPINE 15 MG TABLET (FP) ONE (20:11)
[2018-08-22] MEDS ORDERED: MIRTAZAPINE 30 MG TABLET (FP) PO ONE (20:11)
[2018-08-22] MEDS: INSULIN (LEVEMIR) 100 UNITS/ML UNITS SQ SCH (21:07)
[2018-08-22] MEDS: ATORVASTATIN CA 20 MG TABLET (FP) PO SCH (21:08)
[2018-08-22] MEDS: MIRTAZAPINE 30 MG, MIRTAZAPINE 15 MG PO SCH (21:08)
[2018-08-22] MEDS: MELATONIN 5 MG TABLETS PO PRN (21:08)
[2018-08-22] MEDS: THIAMINE HCL 100 MG TABLET (FP) PO SCH (21:10)
[2018-08-23] MEDS: ACETAMINOPHEN 325 MG TABLET (FP) PO PRN ×3 (02:18→11:57)
[2018-08-23] MEDS: ASPIRIN COATED 81 MG TABLET.EC PO SCH (06:13)
[2018-08-23] MEDS: LISINOPRIL 10 MG TABLET (FP) PO SCH (06:13)
[2018-08-23] MEDS: MAG HYDROX/AL HYDROX/SIMETH 30 ML UNIT-DOSE CUP PO PRN ×3 (06:13→19:51)
[2018-08-23] MEDS: INSULIN SLIDING SCALE (NOVOLOG) 1 VIAL SQ SCH ×4 (06:46→21:17)
[2018-08-23] MEDS: metFORMIN HCL 500 MG TABLET (FP) PO SCH ×2 (06:46→16:41)
[2018-08-23] MEDS: DOCUSATE SODIUM 100 MG CAPSULE (FP) PO SCH ×3 (06:47→21:14)
[2018-08-23] MEDS ORDERED: INSULIN (NOVOLOG) ASPART 100 UNITS/ML 10ML VIAL ONE ×3 (06:50→22:00)
[2018-08-23] MEDS: PRENATAL VITAMINS W/ FOLIC ACID TABLET (FP) PO SCH (09:57)
[2018-08-23] MEDS: SERTRALINE HCL 50 MG TABLET (FP) PO SCH (09:57)
[2018-08-23] MEDS: NICOTINE 14 MG/24 HOURS TOPICAL PATCH TD SCH (09:57)
[2018-08-23] MEDS: HYDROCHLOROTHIAZIDE 25 MG TABLET (FP) PO SCH (09:57)
[2018-08-23] MEDS: RANITIDINE HCL 150 MG TABLET (FP) PO SCH ×2 (09:57→21:17)
--- NOTE | 2018-08-23 11:38 | PN ---
[facility] Progress Note Note: inr 1.80 on 08/22/18 coumadin 10 mgs po daily,repeat inr in am
[2018-08-23] MEDS: WARFARIN NA 5 MG TABLET (UD) PO SCH (17:36)
[2018-08-23] MEDS ORDERED: MIRTAZAPINE 30 MG TABLET (FP) PO ONE (20:19)
[2018-08-23] MEDS ORDERED: MIRTAZAPINE 15 MG TABLET (FP) ONE (20:19)
[2018-08-23] MEDS: MELATONIN 5 MG TABLETS PO PRN (21:14)
[2018-08-23] MEDS: THIAMINE HCL 100 MG TABLET (FP) PO SCH (21:14)
[2018-08-23] MEDS: ATORVASTATIN CA 20 MG TABLET (FP) PO SCH (21:15)
[2018-08-23] MEDS: INSULIN (LEVEMIR) 100 UNITS/ML UNITS SQ SCH (21:16)
[2018-08-23] MEDS: MIRTAZAPINE 30 MG, MIRTAZAPINE 15 MG PO SCH (21:16)
[2018-08-24] MEDS ORDERED: PT OWN MED DRAWER 7, Y5N ONE (03:25)
[2018-08-24] MEDS: LISINOPRIL 10 MG TABLET (FP) PO SCH (06:27)
[2018-08-24] MEDS: metFORMIN HCL 500 MG TABLET (FP) PO SCH ×2 (06:27→16:58)
[2018-08-24] MEDS: ASPIRIN COATED 81 MG TABLET.EC PO SCH (06:27)
[2018-08-24] MEDS: DOCUSATE SODIUM 100 MG CAPSULE (FP) PO SCH ×3 (06:27→21:38)
[2018-08-24] MEDS: INSULIN SLIDING SCALE (NOVOLOG) 1 VIAL SQ SCH ×4 (06:29→21:38)
[2018-08-24] MEDS ORDERED: INSULIN (NOVOLOG) ASPART 100 UNITS/ML 10ML VIAL ONE ×4 (06:42→22:22)
[2018-08-24] MEDS: SERTRALINE HCL 50 MG TABLET (FP) PO SCH (09:19)
[2018-08-24] MEDS: HYDROCHLOROTHIAZIDE 25 MG TABLET (FP) PO SCH (09:19)
[2018-08-24] MEDS: ACETAMINOPHEN 325 MG TABLET (FP) PO PRN ×3 (09:19→22:30)
[2018-08-24] MEDS: RANITIDINE HCL 150 MG TABLET (FP) PO SCH ×2 (09:19→21:38)
[2018-08-24] MEDS: NICOTINE 14 MG/24 HOURS TOPICAL PATCH TD SCH (09:20)
[2018-08-24] MEDS: MAGNESIUM HYDROX 2400MG/30ML ORAL SUSPENSION 30 ML CUP PO PRN (09:20)
[2018-08-24] MEDS: PRENATAL VITAMINS W/ FOLIC ACID TABLET (FP) PO SCH (09:20)
[2018-08-24 10:29] LABS: INR 2.35 (0.83-1.09)
[2018-08-24] MEDS: WARFARIN NA 5 MG TABLET (UD) PO SCH (18:51)
[2018-08-24] MEDS ORDERED: MIRTAZAPINE 15 MG TABLET (FP) ONE (20:46)
[2018-08-24] MEDS ORDERED: MIRTAZAPINE 30 MG TABLET (FP) PO ONE (20:47)
[2018-08-24] MEDS: MIRTAZAPINE 30 MG, MIRTAZAPINE 15 MG PO SCH (21:38)
[2018-08-24] MEDS: THIAMINE HCL 100 MG TABLET (FP) PO SCH (21:38)
[2018-08-24] MEDS: ATORVASTATIN CA 20 MG TABLET (FP) PO SCH (21:38)
[2018-08-24] MEDS: INSULIN (LEVEMIR) 100 UNITS/ML UNITS SQ SCH (21:40)
[2018-08-25] MEDS: DOCUSATE SODIUM 100 MG CAPSULE (FP) PO SCH ×3 (06:20→21:06)
[2018-08-25] MEDS: LISINOPRIL 10 MG TABLET (FP) PO SCH (06:20)
[2018-08-25] MEDS: metFORMIN HCL 500 MG TABLET (FP) PO SCH ×2 (06:20→16:46)
[2018-08-25] MEDS: ASPIRIN COATED 81 MG TABLET.EC PO SCH (06:21)
[2018-08-25] MEDS: INSULIN SLIDING SCALE (NOVOLOG) 1 VIAL SQ SCH ×4 (06:23→21:07)
[2018-08-25] MEDS ORDERED: CYCLOBENZAPRINE HCL 10 MG TABLET (FP) PO ONE (10:15)
[2018-08-25] MEDS: PRENATAL VITAMINS W/ FOLIC ACID TABLET (FP) PO SCH (10:24)
[2018-08-25] MEDS: NICOTINE 14 MG/24 HOURS TOPICAL PATCH TD SCH (10:24)
[2018-08-25] MEDS: HYDROCHLOROTHIAZIDE 25 MG TABLET (FP) PO SCH (10:24)
[2018-08-25] MEDS: RANITIDINE HCL 150 MG TABLET (FP) PO SCH ×2 (10:24→21:06)
[2018-08-25] MEDS: SERTRALINE HCL 50 MG TABLET (FP) PO SCH (10:24)
[2018-08-25] MEDS ORDERED: INSULIN (NOVOLOG) ASPART 100 UNITS/ML 10ML VIAL ONE ×2 (11:47→21:52)
[2018-08-25] MEDS: ACETAMINOPHEN 325 MG TABLET (FP) PO PRN (11:50)
[2018-08-25] MEDS: CYCLOBENZAPRINE HCL 10 MG TABLET (FP) PO SCH ×2 (14:25→21:05)
[2018-08-25] MEDS: WARFARIN NA 5 MG TABLET (UD) PO SCH (18:12)
[2018-08-25] MEDS ORDERED: MIRTAZAPINE 15 MG TABLET (FP) ONE (20:05)
[2018-08-25] MEDS ORDERED: MIRTAZAPINE 30 MG TABLET (FP) PO ONE (20:06)
[2018-08-25] MEDS: THIAMINE HCL 100 MG TABLET (FP) PO SCH (21:05)
[2018-08-25] MEDS: MIRTAZAPINE 30 MG, MIRTAZAPINE 15 MG PO SCH (21:05)
[2018-08-25] MEDS: INSULIN (LEVEMIR) 100 UNITS/ML UNITS SQ SCH (21:06)
[2018-08-25] MEDS: ATORVASTATIN CA 20 MG TABLET (FP) PO SCH (21:06)
[2018-08-25] MEDS: MAGNESIUM HYDROX 2400MG/30ML ORAL SUSPENSION 30 ML CUP PO PRN (21:09)
[2018-08-26] MEDS: LISINOPRIL 10 MG TABLET (FP) PO SCH (06:12)
[2018-08-26] MEDS: metFORMIN HCL 500 MG TABLET (FP) PO SCH ×2 (06:12→16:46)
[2018-08-26] MEDS: DOCUSATE SODIUM 100 MG CAPSULE (FP) PO SCH ×3 (06:12→21:35)
[2018-08-26] MEDS: CYCLOBENZAPRINE HCL 10 MG TABLET (FP) PO SCH ×3 (06:12→21:35)
[2018-08-26] MEDS ORDERED: INSULIN (NOVOLOG) ASPART 100 UNITS/ML 10ML VIAL ONE ×4 (07:02→21:52)
[2018-08-26] MEDS: INSULIN SLIDING SCALE (NOVOLOG) 1 VIAL SQ SCH ×4 (07:12→21:37)
[2018-08-26] MEDS: PRENATAL VITAMINS W/ FOLIC ACID TABLET (FP) PO SCH (09:53)
[2018-08-26] MEDS: SERTRALINE HCL 50 MG TABLET (FP) PO SCH (09:53)
[2018-08-26] MEDS: RANITIDINE HCL 150 MG TABLET (FP) PO SCH ×2 (09:53→21:35)
[2018-08-26] MEDS: NICOTINE 14 MG/24 HOURS TOPICAL PATCH TD SCH (09:53)
[2018-08-26] MEDS: HYDROCHLOROTHIAZIDE 25 MG TABLET (FP) PO SCH (09:53)
[2018-08-26 10:41] LABS: INR 2.94 (0.83-1.09); PROTHROMBIN TIME (PATIENT) 35.1 SEC (9.7-13.0)
[2018-08-26] MEDS: WARFARIN NA 5 MG TABLET (UD) PO SCH (17:01)
[2018-08-26] MEDS ORDERED: MIRTAZAPINE 15 MG TABLET (FP) ONE (20:30)
[2018-08-26] MEDS ORDERED: MIRTAZAPINE 30 MG TABLET (FP) PO ONE (20:31)
[2018-08-26] MEDS: INSULIN (LEVEMIR) 100 UNITS/ML UNITS SQ SCH (21:33)
[2018-08-26] MEDS: THIAMINE HCL 100 MG TABLET (FP) PO SCH (21:35)
[2018-08-26] MEDS: ACETAMINOPHEN 325 MG TABLET (FP) PO PRN (21:35)
[2018-08-26] MEDS: MIRTAZAPINE 30 MG, MIRTAZAPINE 15 MG PO SCH (21:35)
[2018-08-26] MEDS: ATORVASTATIN CA 20 MG TABLET (FP) PO SCH (21:35)
[2018-08-27] MEDS: CYCLOBENZAPRINE HCL 10 MG TABLET (FP) PO SCH ×3 (06:20→21:07)
[2018-08-27] MEDS: LISINOPRIL 10 MG TABLET (FP) PO SCH (06:20)
[2018-08-27] MEDS: DOCUSATE SODIUM 100 MG CAPSULE (FP) PO SCH ×3 (06:20→21:07)
[2018-08-27] MEDS: metFORMIN HCL 500 MG TABLET (FP) PO SCH ×2 (06:20→16:48)
[2018-08-27] MEDS: INSULIN SLIDING SCALE (NOVOLOG) 1 VIAL SQ SCH ×4 (06:21→21:07)
[2018-08-27] MEDS: MAGNESIUM HYDROX 2400MG/30ML ORAL SUSPENSION 30 ML CUP PO PRN ×2 (07:20→14:50)
[2018-08-27] MEDS: ACETAMINOPHEN 325 MG TABLET (FP) PO PRN ×2 (07:21→14:50)
[2018-08-27] MEDS ORDERED: INSULIN (NOVOLOG) ASPART 100 UNITS/ML 10ML VIAL ONE ×3 (07:23→22:13)
[2018-08-27] MEDS: SERTRALINE HCL 50 MG TABLET (FP) PO SCH (09:41)
[2018-08-27] MEDS: HYDROCHLOROTHIAZIDE 25 MG TABLET (FP) PO SCH (09:41)
[2018-08-27] MEDS: RANITIDINE HCL 150 MG TABLET (FP) PO SCH ×2 (09:41→21:08)
[2018-08-27] MEDS: PRENATAL VITAMINS W/ FOLIC ACID TABLET (FP) PO SCH (09:41)
[2018-08-27] MEDS: NICOTINE 14 MG/24 HOURS TOPICAL PATCH TD SCH (09:41)
--- NOTE | 2018-08-27 13:46 | PN ---
[facility] Progress Note Note: PT REQUESTING TO DECREASE BGM TO BID. Vital Signs 08/27/18 06:47 Temperature 98.2 F Pulse Rate 112 H Respiratory 20 Rate Blood Pressure 125/87 Laboratory Tests 08/13/18 08/14/18 08/14/18 23:25 06:23 08:30 WBC 4.4 RBC 4.42 Hgb 13.3 Hct 40.9 MCV 92.6 MCH 30.0 D MCHC 32.4 RDW 15.7 D Plt Count 211 MPV 9.0 PT with INR INR PTT (Actin FS) Sodium Potassium Chloride Carbon Dioxide Anion Gap BUN Creatinine Creat Clearance w eGFR POC Glucometer 326 Random Glucose Calcium Total Bilirubin AST ALT Alkaline Phosphatase Total Protein Albumin Urine Color Yellow Urine Appearance Slcloudy Urine pH 5.0 Ur Specific [place] 1.027 Urine Protein Negative Urine Glucose (UA) 3+ H Urine Ketones Negative Urine Blood Negative Urine Nitrite Negative Urine Bilirubin Negative Urine Urobilinogen Negative Ur Leukocyte Esterase Negative RPR Titer T.pallidum Ab (MHA) 08/14/18 08/14/18 08/14/18 08:30 08:30 08:30 WBC RBC Hgb Hct MCV MCH MCHC RDW Plt Count MPV PT with INR 18.50 H INR 1.64 H PTT (Actin FS) 34.5 Sodium 137 Potassium 4.3 Chloride 102 Carbon Dioxide 25 Anion Gap 10 BUN 10 Creatinine 1.0 Creat Clearance w eGFR > 60 POC Glucometer Random Glucose 328 H* Calcium 9.1 Total Bilirubin 0.4 AST 27 ALT 50 Alkaline Phosphatase 126 H Total Protein 7.2 Albumin 3.5 Urine Color Urine Appearance Urine pH Ur Specific [place] Urine Protein Urine Glucose (UA) Urine Ketones Urine Blood Urine Nitrite Urine Bilirubin Urine Urobilinogen Ur Leukocyte Esterase RPR Titer Reactive 1:4 H T.pallidum Ab (MHA) Previously reactive 08/14/18 08/14/18 08/15/18 16:50 21:38 06:13 WBC RBC Hgb Hct MCV MCH MCHC RDW Plt Count MPV PT with INR INR PTT (Actin FS) Sodium Potassium Chloride Carbon Dioxide Anion Gap BUN Creatinine Creat Clearance w eGFR POC Glucometer [phone] Random Glucose Calcium Total Bilirubin AST ALT Alkaline Phosphatase Total Protein Albumin Urine Color Urine Appearance Urine pH Ur Specific [place] Urine Protein Urine Glucose (UA) Urine Ketones Urine Blood Urine Nitrite Urine Bilirubin Urine Urobilinogen Ur Leukocyte Esterase RPR Titer T.pallidum Ab (A) 08/15/18 08/15/18 08/15/18 11:41 16:52 21:28 WBC RBC Hgb Hct MCV MCH MCHC RDW Plt Count MPV PT with INR INR PTT (Actin FS) Sodium Potassium Chloride Carbon Dioxide Anion Gap BUN Creatinine Creat Clearance w eGFR POC Glucometer 428 274 414 Random Glucose Calcium Total Bilirubin AST ALT Alkaline Phosphatase Total Protein Albumin Urine Color Urine Appearance Urine pH Ur Specific [place] Urine Protein Urine Glucose (UA) Urine Ketones Urine Blood Urine Nitrite Urine Bilirubin Urine Urobilinogen Ur Leukocyte Esterase RPR Titer T.pallidum Ab ([facility]) 08/16/18 08/16/18 08/16/18 06:21 07:30 11:34 WBC RBC Hgb Hct MCV MCH MCHC RDW Plt Count MPV PT with INR 24.00 H INR 2.12 H PTT (Actin FS) Sodium Potassium Chloride Carbon Dioxide Anion Gap BUN Creatinine Creat Clearance w eGFR POC Glucometer 286 410 Random Glucose Calcium Total Bilirubin AST ALT Alkaline Phosphatase Total Protein Albumin Urine Color Urine Appearance Urine pH Ur Specific [place] Urine Protein Urine Glucose (UA) Urine Ketones Urine Blood Urine Nitrite Urine Bilirubin Urine Urobilinogen Ur Leukocyte Esterase RPR Titer T.pallidum Ab ([facility]) 08/16/18 08/16/18 08/17/18 16:27 21:12 06:05 WBC RBC Hgb Hct MCV MCH MCHC RDW Plt Count MPV PT with INR INR PTT (Actin FS) Sodium Potassium Chloride Carbon Dioxide Anion Gap BUN Creatinine Creat Clearance w eGFR POC Glucometer 292 362 251 Random Glucose Calcium Total Bilirubin AST ALT Alkaline Phosphatase Total Protein Albumin Urine Color Urine Appearance Urine pH Ur Specific [place] Urine Protein Urine Glucose (UA) Urine Ketones Urine Blood Urine Nitrite Urine Bilirubin Urine Urobilinogen Ur Leukocyte Esterase RPR Titer T.pallidum Ab (A) 08/17/18 08/17/18 08/17/18 11:40 16:45 21:09 WBC RBC Hgb Hct MCV MCH MCHC RDW Plt Count MPV PT with INR INR PTT (Actin FS) Sodium Potassium Chloride Carbon Dioxide Anion Gap BUN Creatinine Creat Clearance w eGFR POC Glucometer 336 318 285 Random Glucose Calcium Total Bilirubin AST ALT Alkaline Phosphatase Total Protein Albumin Urine Color Urine Appearance Urine pH Ur Specific [place] Urine Protein Urine Glucose (UA) Urine Ketones Urine Blood Urine Nitrite Urine Bilirubin Urine Urobilinogen Ur Leukocyte Esterase RPR Titer T.pallidum Ab (A) 08/18/18 08/18/18 08/18/18 06:22 07:00 11:24 WBC RBC Hgb Hct MCV MCH MCHC RDW Plt Count MPV PT with INR 23.20 H INR 2.05 H PTT (Actin FS) Sodium Potassium Chloride Carbon Dioxide Anion Gap BUN Creatinine Creat Clearance w eGFR POC Glucometer 261 384 Random Glucose Calcium Total Bilirubin AST ALT Alkaline Phosphatase Total Protein Albumin Urine Color Urine Appearance Urine pH Ur Specific [place] Urine Protein Urine Glucose (UA) Urine Ketones Urine Blood Urine Nitrite Urine Bilirubin Urine Urobilinogen Ur Leukocyte Esterase RPR Titer T.pallidum Ab ([facility]) 08/18/18 08/18/18 08/19/18 16:50 21:22 06:04 WBC RBC Hgb Hct MCV MCH MCHC RDW Plt Count MPV PT with INR INR PTT (Actin FS) Sodium Potassium Chloride Carbon Dioxide Anion Gap BUN Creatinine Creat Clearance w eGFR POC Glucometer 292 304 298 Random Glucose Calcium Total Bilirubin AST ALT Alkaline Phosphatase Total Protein Albumin Urine Color Urine Appearance Urine pH Ur Specific [place] Urine Protein Urine Glucose (UA) Urine Ketones Urine Blood Urine Nitrite Urine Bilirubin Urine Urobilinogen Ur Leukocyte Esterase RPR Titer T.pallidum Ab ([facility]) 08/19/18 08/19/18 08/19/18 11:29 16:42 21:43 WBC RBC Hgb Hct MCV MCH MCHC RDW Plt Count MPV PT with INR INR PTT (Actin FS) Sodium Potassium Chloride Carbon Dioxide Anion Gap BUN Creatinine Creat Clearance w eGFR POC Glucometer 435 240 375 Random Glucose Calcium Total Bilirubin AST ALT Alkaline Phosphatase Total Protein Albumin Urine Color Urine Appearance Urine pH Ur Specific [place] Urine Protein Urine Glucose (UA) Urine Ketones Urine Blood Urine Nitrite Urine Bilirubin Urine Urobilinogen Ur Leukocyte Esterase RPR Titer T.pallidum Ab ([facility]) 08/20/18 08/20/18 08/20/18 06:39 08:30 17:04 WBC RBC Hgb Hct MCV MCH MCHC RDW Plt Count MPV PT with INR 25.60 H INR 2.27 H PTT (Actin FS) Sodium Potassium Chloride Carbon Dioxide Anion Gap BUN Creatinine Creat Clearance w eGFR POC Glucometer [phone] Random Glucose Calcium Total Bilirubin AST ALT Alkaline Phosphatase Total Protein Albumin Urine Color Urine Appearance Urine pH Ur Specific [place] Urine Protein Urine Glucose (UA) Urine Ketones Urine Blood Urine Nitrite Urine Bilirubin Urine Urobilinogen Ur Leukocyte Esterase RPR Titer T.pallidum Ab ([facility]) 08/20/18 08/21/18 08/21/18 21:02 06:23 11:45 WBC RBC Hgb Hct MCV MCH MCHC RDW Plt Count MPV PT with INR INR PTT (Actin FS) Sodium Potassium Chloride Carbon Dioxide Anion Gap BUN Creatinine Creat Clearance w eGFR POC Glucometer 332 262 267 Random Glucose Calcium Total Bilirubin AST ALT Alkaline Phosphatase Total Protein Albumin Urine Color Urine Appearance Urine pH Ur Specific [place] Urine Protein Urine Glucose (UA) Urine Ketones Urine Blood Urine Nitrite Urine Bilirubin Urine Urobilinogen Ur Leukocyte Esterase RPR Titer T.pallidum Ab ([facility]) 08/21/18 08/21/18 08/22/18 17:01 22:19 05:55 WBC RBC Hgb Hct MCV MCH MCHC RDW Plt Count MPV PT with INR INR PTT (Actin FS) Sodium Potassium Chloride Carbon Dioxide Anion Gap BUN Creatinine Creat Clearance w eGFR POC Glucometer 315 337 292 Random Glucose Calcium Total Bilirubin AST ALT Alkaline Phosphatase Total Protein Albumin Urine Color Urine Appearance Urine pH Ur Specific [place] Urine Protein Urine Glucose (UA) Urine Ketones Urine Blood Urine Nitrite Urine Bilirubin Urine Urobilinogen Ur Leukocyte Esterase RPR Titer T.pallidum Ab ([facility]) 08/22/18 08/22/18 08/22/18 07:40 11:52 16:52 WBC RBC Hgb Hct MCV MCH MCHC RDW Plt Count MPV PT with INR 21.40 H INR 1.80 H PTT (Actin FS) Sodium Potassium Chloride Carbon Dioxide Anion Gap BUN Creatinine Creat Clearance w eGFR POC Glucometer 281 284 Random Glucose Calcium Total Bilirubin AST ALT Alkaline Phosphatase Total Protein Albumin Urine Color Urine Appearance Urine pH Ur Specific [place] Urine Protein Urine Glucose (UA) Urine Ketones Urine Blood Urine Nitrite Urine Bilirubin Urine Urobilinogen Ur Leukocyte Esterase RPR Titer T.pallidum Ab ([facility]) 08/22/18 08/23/18 08/23/18 21:05 06:10 11:53 WBC RBC Hgb Hct MCV MCH MCHC RDW Plt Count MPV PT with INR INR PTT (Actin FS) Sodium Potassium Chloride Carbon Dioxide Anion Gap BUN Creatinine Creat Clearance w eGFR POC Glucometer 321 261 407 Random Glucose Calcium Total Bilirubin AST ALT Alkaline Phosphatase Total Protein Albumin Urine Color Urine Appearance Urine pH Ur Specific [place] Urine Protein Urine Glucose (UA) Urine Ketones Urine Blood Urine Nitrite Urine Bilirubin Urine Urobilinogen Ur Leukocyte Esterase RPR Titer T.pallidum Ab ([facility]) 08/23/18 08/23/18 08/24/18 16:40 21:13 06:26 WBC RBC Hgb Hct MCV MCH MCHC RDW Plt Count MPV PT with INR INR PTT (Actin FS) Sodium Potassium Chloride Carbon Dioxide Anion Gap BUN Creatinine Creat Clearance w eGFR POC Glucometer 294 294 267 Random Glucose Calcium Total Bilirubin AST ALT Alkaline Phosphatase Total Protein Albumin Urine Color Urine Appearance Urine pH Ur Specific [place] Urine Protein Urine Glucose (UA) Urine Ketones Urine Blood Urine Nitrite Urine Bilirubin Urine Urobilinogen Ur Leukocyte Esterase RPR Titer T.pallidum Ab ([facility]) 08/24/18 08/24/18 08/24/18 07:00 11:48 16:56 WBC RBC Hgb Hct MCV MCH MCHC RDW Plt Count MPV PT with INR 28.00 H INR 2.35 H PTT (Actin FS) Sodium Potassium Chloride Carbon Dioxide Anion Gap BUN Creatinine Creat Clearance w eGFR POC Glucometer 329 385 Random Glucose Calcium Total Bilirubin AST ALT Alkaline Phosphatase Total Protein Albumin Urine Color Urine Appearance Urine pH Ur Specific [place] Urine Protein Urine Glucose (UA) Urine Ketones Urine Blood Urine Nitrite Urine Bilirubin Urine Urobilinogen Ur Leukocyte Esterase RPR Titer T.pallidum Ab ([facility]) 08/24/18 08/25/18 08/25/18 21:37 06:21 11:45 WBC RBC Hgb Hct MCV MCH MCHC RDW Plt Count MPV PT with INR INR PTT (Actin FS) Sodium Potassium Chloride Carbon Dioxide Anion Gap BUN Creatinine Creat Clearance w eGFR POC Glucometer 399 300 425 Random Glucose Calcium Total Bilirubin AST ALT Alkaline Phosphatase Total Protein Albumin Urine Color Urine Appearance Urine pH Ur Specific [place] Urine Protein Urine Glucose (UA) Urine Ketones Urine Blood Urine Nitrite Urine Bilirubin Urine Urobilinogen Ur Leukocyte Esterase RPR Titer T.pallidum Ab ([facility]) 08/25/18 08/25/18 08/26/18 16:45 21:03 06:10 WBC RBC Hgb Hct MCV MCH MCHC RDW Plt Count MPV PT with INR INR PTT (Actin FS) Sodium Potassium Chloride Carbon Dioxide Anion Gap BUN Creatinine Creat Clearance w eGFR POC Glucometer 349 374 240 Random Glucose Calcium Total Bilirubin AST ALT Alkaline Phosphatase Total Protein Albumin Urine Color Urine Appearance Urine pH Ur Specific [place] Urine Protein Urine Glucose (UA) Urine Ketones Urine Blood Urine Nitrite Urine Bilirubin Urine Urobilinogen Ur Leukocyte Esterase RPR Titer T.pallidum Ab ([facility]) 08/26/18 08/26/18 08/26/18 08:26 11:34 16:45 WBC RBC Hgb Hct MCV MCH MCHC RDW Plt Count MPV PT with INR 35.10 H INR 2.94 H PTT (Actin FS) Sodium Potassium Chloride Carbon Dioxide Anion Gap BUN Creatinine Creat Clearance w eGFR POC Glucometer 326 292 Random Glucose Calcium Total Bilirubin AST ALT Alkaline Phosphatase Total Protein Albumin Urine Color Urine Appearance Urine pH Ur Specific [place] Urine Protein Urine Glucose (UA) Urine Ketones Urine Blood Urine Nitrite Urine Bilirubin Urine Urobilinogen Ur Leukocyte Esterase RPR Titer T.pallidum Ab ([facility]) 08/26/18 08/27/18 08/27/18 21:33 06:19 11:40 WBC RBC Hgb Hct MCV MCH MCHC RDW Plt Count MPV PT with INR INR PTT (Actin FS) Sodium Potassium Chloride Carbon Dioxide Anion Gap BUN Creatinine Creat Clearance w eGFR POC Glucometer 322 249 300 Random Glucose Calcium Total Bilirubin AST ALT Alkaline Phosphatase Total Protein Albumin Urine Color Urine Appearance Urine pH Ur Specific [place] Urine Protein Urine Glucose (UA) Urine Ketones Urine Blood Urine Nitrite Urine Bilirubin Urine Urobilinogen Ur Leukocyte Esterase RPR Titer T.pallidum Ab ([facility]) PLAN;DISCUSSED WITH PT PROS AND CONS. BOTH CAME TO UNDERSTANDING WILL DO BGM BID PLUS HS
[2018-08-27] MEDS: WARFARIN NA 5 MG TABLET (UD) PO SCH (17:46)
[2018-08-27] MEDS ORDERED: MIRTAZAPINE 15 MG TABLET (FP) ONE (19:44)
[2018-08-27] MEDS ORDERED: MIRTAZAPINE 30 MG TABLET (FP) PO ONE (19:44)
[2018-08-27] MEDS: ATORVASTATIN CA 20 MG TABLET (FP) PO SCH (21:07)
[2018-08-27] MEDS: INSULIN (LEVEMIR) 100 UNITS/ML UNITS SQ SCH (21:07)
[2018-08-27] MEDS: THIAMINE HCL 100 MG TABLET (FP) PO SCH (21:07)
[2018-08-27] MEDS: MIRTAZAPINE 30 MG, MIRTAZAPINE 15 MG PO SCH (21:08)
[2018-08-28] MEDS: MAGNESIUM HYDROX 2400MG/30ML ORAL SUSPENSION 30 ML CUP PO PRN (00:35)
[2018-08-28] MEDS: ACETAMINOPHEN 325 MG TABLET (FP) PO PRN (00:35)
[2018-08-28] MEDS: CYCLOBENZAPRINE HCL 10 MG TABLET (FP) PO SCH ×2 (06:26→14:36)
[2018-08-28] MEDS: LISINOPRIL 10 MG TABLET (FP) PO SCH (06:26)
[2018-08-28] MEDS: DOCUSATE SODIUM 100 MG CAPSULE (FP) PO SCH ×2 (06:26→14:36)
[2018-08-28] MEDS: metFORMIN HCL 500 MG TABLET (FP) PO SCH ×2 (06:26→18:43)
[2018-08-28] MEDS: INSULIN SLIDING SCALE (NOVOLOG) 1 VIAL SQ SCH ×3 (07:39→18:43)
[2018-08-28] MEDS ORDERED: INSULIN (NOVOLOG) ASPART 100 UNITS/ML 10ML VIAL ONE ×2 (07:53→11:20)
--- NOTE | 2018-08-28 09:25 | PN ---
[facility] Progress Note Note: PT REPORTS C/O LEFT CHEST DISCOMFORT WITH NO RADIATION TO OTHER PART AND NAUSEA/ VOMITING X 4 LAST NIGHT(BUT SAYS DID NOT BRING ATTENTION TO THE NURSE). PT STILL C/O ABDOMINAL DISCOMFORT BUT LESS THAN PREVIOUS DAYS-6/10 SCALE. PT ALSO C /O SOB AND DIZZINESS THIS MORNING. PT ALSO REPORTS HX MILD CO IN 2005 OR 2006( PER PATIENT NARRATIVE). BM+. Vital Signs 08/28/18 07:20 Temperature 98.4 F Pulse Rate 115 H Respiratory 20 Rate Blood Pressure 151/94 S1 S2,TACHYCARDIA EKG: SINUS TACHYCARDIA, OTHERWISE NORMAL ECG. PREVIOUS EKG OF 08/13/18 :NSR, NORMAL ECG. DX:CHEST PAIN;N/V PLAN:TRANSFER TO [facility] [[email or web address] ER FOR FURTHER EVALUATION AND TREATMENT. PT MAY RETURN TO [facility] TO COMPETE REHAB. SPOKE TO ARLYN COLBY NP WHO AGREED TO ACCEPT THE PATIENT.
[2018-08-28] MEDS: RANITIDINE HCL 150 MG TABLET (FP) PO SCH (10:14)
[2018-08-28] MEDS: PRENATAL VITAMINS W/ FOLIC ACID TABLET (FP) PO SCH (10:14)
[2018-08-28] MEDS: HYDROCHLOROTHIAZIDE 25 MG TABLET (FP) PO SCH (10:14)
[2018-08-28] MEDS: SERTRALINE HCL 50 MG TABLET (FP) PO SCH (10:14)
[2018-08-28] MEDS: NICOTINE 14 MG/24 HOURS TOPICAL PATCH TD SCH (10:15)
[2018-08-28] MEDS ORDERED: ONDANSETRON *ODT* 4 MG TABLET SL PRN (11:31)
[2018-08-28 11:52] VITALS: BP 123/83; PULSE 125; TEMP 98.1
[2018-08-28] MEDS: WARFARIN NA 5 MG TABLET (UD) PO SCH (18:44)
--- NOTE | 2018-08-29 17:32 | EKG ---
Test Reason : Blood Pressure : / mmHG Vent. Rate : 111 BPM Atrial Rate : 111 BPM P-R Int : 150 ms QRS Dur : 080 ms QT Int : 320 ms P-R-T Axes : 059 029 033 degrees QTc Int : 435 ms SINUS TACHYCARDIA OTHERWISE NORMAL ECG WHEN COMPARED WITH ECG OF 20-AUG-2018 11:35, NO SIGNIFICANT CHANGE WAS FOUND Confirmed by ANI GENAO MD ([id number]) on 08/29/2018 5:32:00 PM Referred By: Confirmed By:ANI GENAO MD
== END 2018-08-28 19:00 | disposition short-term general hospital (02) | DRG 772 ==
LOC: YASAS 15:53 → Y3W 20:23
PROVIDERS: ADMIT Psychiatry & Neurology Psychiatry; ATTEND Psychiatry & Neurology Psychiatry
PROC: HZ42ZZZ Group Counseling for Substance Abuse Treatment, Cognitive-Behavioral (ICD-10-PCS; principal; 2018-08-13)
DX: F10.20 Alcohol dependence, uncomplicated (principal); F14.20 Cocaine dependence, uncomplicated; F17.210 Nicotine dependence, cigarettes, uncomplicated; F31.81 Bipolar II disorder; F33.9 Major depressive disorder, recurrent, unspecified; F19.24 Other psychoactive substance dependence with psychoactive substance-induced mood disorder; F19.282 Other psychoactive substance dependence with psychoactive substance-induced sleep disorder; I10 Essential (primary) hypertension; G40.909 Epilepsy, unspecified, not intractable, without status epilepticus; E11.65 Type 2 diabetes mellitus with hyperglycemia; E78.5 Hyperlipidemia, unspecified; R07.9 Chest pain, unspecified; R00.0 Tachycardia, unspecified; R11.2 Nausea with vomiting, unspecified; R10.13 Epigastric pain; K85.90 Acute pancreatitis without necrosis or infection, unspecified; Z87.438 Personal history of other diseases of male genital organs; Z86.718 Personal history of other venous thrombosis and embolism; Z79.4 Long term (current) use of insulin; Z79.84 Long term (current) use of oral hypoglycemic drugs; Z79.01 Long term (current) use of anticoagulants; Z86.73 Personal history of transient ischemic attack (TIA), and cerebral infarction without residual deficits; Z59.0 Homelessness
CPT/HCPCS: 36415; 80053; 81003; 82962; 85027; 85610; 85730; 86593; 86780; 93005; 93010

== ENCOUNTER → 2018-08-20 | Emergency (ER) | payer OTHER ==
[~2018-08-20] MED LIST: DOCUSATE NA 100 MG/10 ML UNIT-DOSE CUPS PO ONE; HEMOQUE TEST 1 EACH EACH ONE; INSULIN REGULAR HUMAN 100 UNITS/ML *VIAL IVPUSH ONE; morphine CARPU-JECT 4 MG/1 ML DISP.SYRIN IVPUSH ONE; morphine SULFATE 4 MG/ML VIAL ONE
[2018-08-20 11:03] VITALS: BMI 39.5
--- NOTE | 2018-08-20 11:05 | PDOC ---
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 He additionally notes nausea this morning. He does not believe his abdomen is any more distended or swollen than normal. He denies f/c , vomiting, diarrhea, black/bloody stool, testicular pain/swelling, burning or frequency on urination, hematuria, chest pain, back pain, or SOB. His last BM was this morning and was small but otherwise normal, and he has been passing gas normally. [facility] staff tried giving him Mylanta and Zantac without relief. Past History - Past Medical History Allergies/Adverse Reactions: Allergies Allergy/AdvReac Type Severity Reaction Status Date / Time No Known Allergies Allergy Verified 09/15/14 16:42 Home Medications: Ambulatory Orders Aspirin [Aspirin EC] 81 mg PO AM 09/15/14 Atorvastatin Ca [Lipitor -] 20 mg PO HS 09/15/14 Hydrochlorothiazide [Hctz -] 25 mg PO DAILY 09/15/14 Lisinopril [Prinivil] 10 mg PO AM 09/15/14 Metformin HCl [Glucophage] 500 mg PO BID 09/15/14 Warfarin Sodium [Coumadin] 10 mg PO DAILY 09/15/14 Fluoxetine HCl [Prozac -] 20 mg PO DAILY #30 capsule 09/16/14 traZODone HCL [Desyrel -] 50 mg PO HS #30 tablet 09/16/14 Diphenhydramine [Benadryl -] 50 mg PO HS 08/13/18 Mirtazapine [Remeron -] 45 mg PO HS 08/13/18 Sertraline HCl [Zoloft] 200 mg PO DAILY 08/13/18 Anemia: No Asthma: No Cancer: No Cardiac Disorders: No CVA: No COPD: No CHF: No Dementia: No Diabetes: Yes GI Disorders: No Disorders: No HTN: Yes Hypercholesterolemia: Yes (Lipitor) Kidney Stones: No Liver Disease: No Seizures: Yes Thyroid Disease: No - Reproductive History Testicular Surgery: No - Suicide/Smoking/Psychosocial Hx Smoking History: Current every day smoker Have you smoked in the past 12 months: Yes Number of Cigarettes Smoked Daily: 10 'Breaking Loose' booklet given: 08/13/18 Hx Alcohol Use: Yes Drug/Substance Use Hx: Yes Substance Use Type: Alcohol (Started drinkind alcohol at age 16, consumes vodka 2 pints of vodka and 24x 24oz of beer daily. Last drink on 08/13/18), Cocaine ( Started using cocaine at age 37, consumes $200-300 daily. Last used 2 weeks ago) , Marijuana (Started smoking marijuana atage 16, consumes 20 joints daily. Last smoked 2 weeks ago) Hx Substance Use Treatment: Yes (4 previous inpt detox & 3-4 inpt rehab admissions) Abd/GI Specific PMHX - Complaint Specific PMHX Hepatitis: No Pancreatitis: No Review of Systems - Review of Systems Able to Perform ROS?: Yes Constitutional: No: Chills, Fever, Unexplained wgt Loss HEENTM: No: Nose Congestion, Throat Pain Respiratory: No: Cough, Shortness of Breath Cardiac (ROS): No: Chest Pain, Palpitations ABD/GI: Yes: Constipated, Nausea, Other (abdominal pain). No: Diarrhea, Vomiting : No: Burning, Dysuria Musculoskeletal: No: Back Pain, Neck Pain Integumentary: No: Bruising, Rash Neurological: No: Headache, Numbness, Tingling, Weakness, Dizziness Endocrine: No: Unexplained Weight Gain, Unexplained Weight Loss *Physical Exam - Vital Signs Initial Vital Signs Temp Pulse Resp BP Pulse Ox 98.6 F 86 18 126/84 95 08/20/18 11:01 08/20/18 11:01 08/20/18 11:01 08/20/18 11:01 08/20/18 11:01 GENERAL: nontoxic and well-appearing, nourished, A/Ox4, no acute distress, speaking in full sentences, answers questions appropriately, appears comfortable HEENT: PERRLA, EOMI, moist mucous membranes, no posterior pharyngeal erythema, no tonsillar swelling or exudates, no cervical lymphadenopathy NECK: No midline ttp, no spinal stepoff or deformity, full ROM, supple CARDIOVASCULAR: Regular rate and rhythm, normal S1S2, MGR, radial and DP pulses 2+ and symmetric, capillary refill <2 seconds, extremities warm and well- perfused LUNGS/RESPIRATORY: No respiratory distress, normal and symmetric chest movements during respirations, lungs CTA bilaterally, equal breath sounds, no cyanosis, no nail clubbing GI/ABDOMEN: normal skin appearance, symmetric, protuberant and distended to the point where abdomen is slightly tight, normoactive bowel sounds, mild BLQ tenderness to palpation, no midline pulsatile masses, no palpated organomegaly although exam is limited by protuberance : No CVA tenderness BACK: No midline ttp or stepoff or deformity of thoracic or lumbar spine EXTREMITIES: distal pulses 2+, warm and well-perfused, no LE edema SKIN: Warm and dry, no pallor, no jaundice, no bruising, no rash, no skin breakdown, no cuts, no lesions, no spider angiomata NEUROLOGICAL: GCS 15, CN II-XII grossly intact, ambulating with normal gait, moving all extremities, 5/5 strength proximally and distally, no facial droop, no decreased sensation Heart Score/ECG Review #1 08/20/18 11:35 NSR rate 85 with normal axis and intervals, no ischemic ST-T changes ED Treatment Course - LABORATORY CBC & Chemistry Diagram: 08/20/18 11:05 08/20/18 11:05 Medical Decision Making - Medical Decision Making 08/20/18 11:16 Adult male Pt p/w diffuse lower abdominal pain and distention. Vital Signs Temperature 98.6 F 08/20/18 11:01 Pulse Rate 86 08/20/18 11:01 Respiratory Rate 18 08/20/18 11:01 Blood Pressure 126/84 08/20/18 11:01 O2 Sat by Pulse Oximetry (%) 95 08/20/18 11:01 Exam: As noted in Physical Exam section. DDX IBNLT: constipation, ascites, hernia, referred pain (i.e. UTI/pyelonephritis , renal colic, appendicitis, etc), malignancy, musculoskeletal, etc. W/U ordered: CBCD CMP Mg Phos Lactate Lipase Troponin Coags UA UCx EKG TX ordered: [place] Laboratory Tests 08/20/18 08/20/18 08/20/18 11:05 11:05 11:05 WBC 5.1 RBC 4.57 Hgb 13.8 Hct 42.4 MCV 92.8 MCH 30.2 MCHC 32.5 RDW 15.4 Plt Count 233 MPV 9.4 Absolute Neuts (auto) 3.4 Neutrophils % 65.5 Lymphocytes % 23.4 Monocytes % 9.4 Eosinophils % 0.6 Basophils % 1.1 Nucleated RBC % 0 PT with INR INR Sodium 130 L Potassium 4.9 Chloride 95 L Carbon Dioxide 30 Anion Gap 5 L BUN 13 Creatinine 1.1 Creat Clearance w eGFR > 60 Random Glucose 348 H* Lactic Acid 1.9 Calcium 9.1 Phosphorus 3.6 Magnesium 2.3 Total Bilirubin 0.4 AST 21 ALT 42 Alkaline Phosphatase 179 H Troponin I < 0.02 Total Protein 7.9 Albumin 3.6 Lipase 745 H Urine Color Urine Appearance Urine pH Ur Specific [place] Urine Protein Urine Glucose (UA) Urine Ketones Urine Blood Urine Nitrite Urine Bilirubin Urine Urobilinogen Ur Leukocyte Esterase 08/20/18 08/20/18 11:30 12:03 WBC RBC Hgb Hct MCV MCH MCHC RDW Plt Count MPV Absolute Neuts (auto) Neutrophils % Lymphocytes % Monocytes % Eosinophils % Basophils % Nucleated RBC % PT with INR 26.40 H INR 2.34 H Sodium Potassium Chloride Carbon Dioxide Anion Gap BUN Creatinine Creat Clearance w eGFR Random Glucose Lactic Acid Calcium Phosphorus Magnesium Total Bilirubin AST ALT Alkaline Phosphatase Troponin I Total Protein Albumin Lipase Urine Color Ltyellow Urine Appearance Clear Urine pH 7.0 D Ur Specific [place] 1.026 Urine Protein Negative Urine Glucose (UA) 3+ H Urine Ketones Negative Urine Blood Negative Urine Nitrite Negative Urine Bilirubin Negative Urine Urobilinogen Negative Ur Leukocyte Esterase Negative Reassessment: Patient states still painful, no BM. Lipase in the 700s and formal GB ultrasound is ordered. The patient has elevated alk phos but this is per his normal [facility] baseline. The patient also has hyperglycemia but this is also per his [facility] baseline. Vital Signs Temperature 97.9 F 08/20/18 14:20 Pulse Rate 76 08/20/18 14:20 Respiratory Rate 20 08/20/18 14:20 Blood Pressure 139/93 08/20/18 14:20 O2 Sat by Pulse Oximetry (%) 99 08/20/18 14:20 This patient has gotten significant relief of symptoms while in the ED. On last reassessment, vitals are wnl, pain is reasonably controlled, and exam is benign. Workup is not concerning for emergency-level pathology at this time. This patient is appropriate for discharge with close outpatient follow up. They are comfortable with this plan and will follow up with their primary care provider in 1-3 days. Specific return precautions are discussed and they will come back to the ER if necessary. Vital Signs Temperature 98.1 F 08/20/18 17:25 Pulse Rate 77 08/20/18 17:25 Respiratory Rate 18 08/20/18 17:25 Blood Pressure 124/79 08/20/18 17:25 O2 Sat by Pulse Oximetry (%) 100 08/20/18 17:25 Patient awaiting arrival of EMS to transport back to [facility]. I have already spoken with [facility] RN who knows the patient and informed of the mild pancreatitis. [facility] will be able to manage this as patient needs only liquid diet x24 h, hydration. Will advance diet slowly as tolerated after 24. *DC/Admit/Observation/Transfer Diagnosis at time of Disposition: Elevated lipase, Nausea Constipation Qualifiers: Constipation type: unspecified constipation type Qualified Code(s): K59.00 - Constipation, unspecified Abdominal pain Qualifiers: Abdominal location: unspecified location Qualified Code(s): R10.9 - Unspecified abdominal pain - Discharge Dispostion Condition at time of disposition: Stable Decision to Admit order: No - Referrals [place]: [facility] [facility] [place] Group] - Patient Instructions Additional Instructions: YOU WERE SEEN IN THE ER FOR ABDOMINAL PAIN AND CONSTIPATION. WE DID AN EXAM, LABORATORY WORK ON YOUR BLOOD AND URINE, AND DID AN ULTRASOUND, AND WE FOUND EVIDENCE OF A VERY MILDLY INFLAMED PANCREAS, BUT WE DID NOT FIND ANY SIGNS OF AN EMERGENCY. YOUR PAIN IMPROVED WITH THE MEDICATIONS WE GAVE YOU HERE IN THE ER. AFTER OUR ASSESSMENT, WE BELIEVE YOU ARE NOT HAVING A MEDICAL EMERGENCY AND YOU ARE SAFE TO GO BACK TO [facility]. PLEASE TAKE [id number] LAXATIVES LIKE DOCUSATE AND MILK OF MAGNESIA. TAKE [id number] PAIN RELIEVERS LIKE IBUPROFEN (MOTRIN) OR TYLENOL. HYDRATE VERY WELL, AND STAY ON A LIQUID DIET FOR 24 HOURS, THEN ADVANCE YOUR DIET SLOWLY AFTER THAT TIME. FOLLOW UP WITH YOUR PRIMARY CARE PROVIDER(S) IN THE NEXT 1-3 DAYS. CALL THEIR CLINIC [facility], TELL THEM YOU WERE SEEN IN THE ER, AND TELL THEM YOU NEED AN APPOINTMENT. PLEASE COME BACK TO THE ER AT ANY TIME, 24 HOURS A DAY, FOR ANY NEW OR WORSENING SYMPTOMS, LIKE WORSENING PAIN OR SWELLING OF THE ABDOMEN, VOMITING YOU CANNOT CONTROL, VOMITING BLOOD, BLACK/BLOODY STOOL, HIGH FEVER, OR OTHER SYMPTOMS. IF YOU ARE HAVING SEVERE OR LIFE THREATENING SYMPTOMS, OR SYMPTOMS THAT MAKE IT UNSAFE TO DRIVE OR HAVE SOMEONE DRIVE YOU, PLEASE CALL 911. FOR MAYSEL CARE STAFF: MR. MIRANDA HAS POSSIBLE VERY MILD PANCREATITIS. HE NEEDS TO BE ON A LIQUID DIET FOR 24 HOURS THEN SLOWLY ADVANCE DIET AFTERWARD. HE NEEDS TO HYDRATE VERY WELL. HE IS ALSO CONSTIPATED AND NEEDS DOCUSATE AND MILK OF MAGNESIA. - Post Discharge Activity
--- NOTE | 2018-08-20 11:08 | PDOC ---
Attending Attestation - Resident Resident Name: Lora Castellanos - ED Attending Attestation I have performed the following: I have examined & evaluated the patient, The case was reviewed & discussed with the resident, I agree w/resident's findings & plan, Exceptions are as noted - HPI HPI: 08/20/18 11:07 52y M hx of ETOH abuse in rehab, htn,hl, dm, PE and DVT(on coumadin) currently sent for 1 week of lower abdominal pain, 08/03, nonradiating in the b/l lower abdominen, associated nausea, notes it is constant aching but will worsen in ' waves'. pt denies any radiation of the pain to the back, testicles or chest. no associated fever/chills, bpr, cough, cp, sob, diaphoresis. no hx of abdminal surgery. pt was given zantac/mylanta without significant relief at [facility]. pt has care at [place] - Physicial Exam PE: 08/20/18 12:01 GENERAL: The patient is awake, alert, and fully oriented, Nontoxic - in no acute distress. HEAD: Normocephalic, atraumatic. LUNGS: Breath sounds equal, clear to auscultation bilaterally. No wheezes, no rhonchi, no rales. HEART: Regular rate and rhythm, normal S1 and S2 without murmur, rub or gallop. ABDOMEN: Sightly distended/obese abdomen, no rebound or guarding, mild diffuse tenderness, no cva tenderness EXTREMITIES: Normal range of motion, +edema/hyperpigmentation of LLE>RLE neg homans NEUROLOGICAL: No facial assymetry, Normal speech, PSYCH: Normal mood, normal affect. SKIN: Warm, Dry, normal turgor, - Medical Decision Making 08/20/18 12:19 ddx includes possible gastritis, obstruction, consider mesenteric ischemia, uti will ck labs, lactic acid, ua will reassess 08/20/18 13:58 labs noted for lipase in the 700s suggestive of pancreatitis will obtain RUQ US Heart Score/ECG Review - ECG Impressions Comment:: 08/20/18 12:25 Twelve-lead EKG was performed and reviewed by me. There is normal sinus rhythm with a normal rate. Rate of 85 The axis is normal. The intervals are normal. There is normal R wave progression There are no ST or T wave abnormalities. Impression: Normal twelve-lead EKG
[2018-08-20 11:38] LABS: BASO % 1.1 % (0-2.0); EOS % 0.6 % (0-4.5); HEMATOCRIT 42.4 % (35.4-49); HEMOGLOBIN 13.8 GM/dL (11.7-16.9); LYMPH % 23.4 % (8-40); MCH 30.2 pg (25.7-33.7); MCHC 32.5 g/dl (32.0-35.9); MEAN CELL VOLUME 92.8 fl (80-96); MEAN PLT VOLUME 9.4 fl (7.5-11.1); MONO % 9.4 % (3.8-10.2); NEUT % 65.5 % (42.8-82.8); PLATELET COUNT 233 K/MM3 (134-434); RBC 4.57 M/mm3 (4.00-5.60); RDW 15.4 % (11.9-15.9); WHITE BLOOD COUNT 5.1 K/mm3 (4.0-10.0)
[2018-08-20 11:41] LABS: URINE APPEARANCE CLEAR; URINE BILIRUBIN NEGATIVE (<2.0 mg/dL); URINE COLOR LTYELLOW; URINE GLUCOSE (UA) 3+ (NEGATIVE); URINE KETONE NEGATIVE (NEGATIVE); URINE LEUK ESTERASE NEGATIVE (NEGATIVE); URINE NITRITE NEGATIVE (NEGATIVE); URINE PROTEIN NEGATIVE (NEGATIVE); URINE UROBILINOGEN NEGATIVE mg/dL (0.2-1.0)
[2018-08-20 12:31] LABS: INR 2.34 (0.83-1.09); PROTHROMBIN TIME (PATIENT) 26.4 SEC (9.7-13.0)
[2018-08-20 12:46] LABS: ALBUMIN 3.6 g/dl (3.4-5.0); ALK PHOS 179 U/L (45-117); ANION GAP 5 MMOL/L (8-16); BILIRUBIN,TOTAL 0.4 mg/dL (0.2-1); BLOOD UREA NITROGEN 13 mg/dL (7-18); CALCIUM 9.1 mg/dL (8.5-10.1); CHLORIDE 95 mmol/L (98-107); CO2 30 mmol/L (21-32); CREATININE 1.1 mg/dL (0.55-1.3); LIPASE 745 U/L (73-393); MAGNESIUM 2.3 mg/dL (1.8-2.4); PHOSPHOROUS 3.6 mg/dL (2.5-4.9); POTASSIUM 4.9 mmol/L (3.5-5.1); SGOT/AST 21 U/L (15-37); SGPT/ALT 42 U/L (13-61); SODIUM 130 mmol/L (136-145); TOT PROT 7.9 g/dl (6.4-8.2)
[2018-08-20 12:50] LABS: GLUCOSE,RANDOM 348 mg/dL (74-106)
--- NOTE | 2018-08-20 14:30 | EKG ---
Test Reason : Blood Pressure : / mmHG Vent. Rate : 085 BPM Atrial Rate : 085 BPM P-R Int : 150 ms QRS Dur : 080 ms QT Int : 348 ms P-R-T Axes : 056 015 032 degrees QTc Int : 414 ms NORMAL SINUS RHYTHM NORMAL ECG WHEN COMPARED WITH ECG OF 13-AUG-2018 22:31, NO SIGNIFICANT CHANGE WAS FOUND Confirmed by ORLY REYES MD ([id number]) on 08/20/2018 2:30:15 PM Referred By: Confirmed By:ORLY REYES MD
[2018-08-20 17:26] VITALS: BP 124/79; PULSE 77; TEMP 98.1
== END | disposition home or self-care (01) ==
LOC: JER 10:48
PROC: 3E033NZ Introduction of Analgesics, Hypnotics, Sedatives into Peripheral Vein, Percutaneous Approach (ICD-10-PCS; principal; 2018-08-20)
PROC: 3E033NZ Introduction of Analgesics, Hypnotics, Sedatives into Peripheral Vein, Percutaneous Approach (ICD-10-PCS; 2018-08-20)
DX: K59.00 Constipation, unspecified (principal); R74.8 Abnormal levels of other serum enzymes; K86.1 Other chronic pancreatitis; I10 Essential (primary) hypertension; E78.00 Pure hypercholesterolemia, unspecified; E11.9 Type 2 diabetes mellitus without complications; Z79.4 Long term (current) use of insulin; Z79.84 Long term (current) use of oral hypoglycemic drugs; Z86.711 Personal history of pulmonary embolism; Z86.718 Personal history of other venous thrombosis and embolism; Z79.01 Long term (current) use of anticoagulants; F10.10 Alcohol abuse, uncomplicated
CPT/HCPCS: 36415; 76705-TC; 80053; 81003; 83605; 83690; 83735; 84100; 84484; 85025; 85610; 87086; 93005; 93010; 99284-25

== ENCOUNTER 2018-08-28 12:29 | Inpatient (IN) | payer OTHER ==
[2018-08-28] MEDS ORDERED: SODIUM CHLORIDE 1,000 ML IV STA (12:43)
--- NOTE | 2018-08-28 12:46 | PDOC ---
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 He returns today with chest pain, abdominal pain, and shortness of breath that began yesterday while at rest. He reports that this feels different both from his PE and his prior episode of pancreatitis. He vomited once today. He had subjective fever this morning. He denies cough, hemoptysis, constipation/diarrhea, or any other symptoms. Vital signs on arrival are notable for heart rate of 106. REVIEW OF SYSTEMS: GENERAL/CONSTITUTIONAL: Subjective fever. No chills. No weakness. No weight change. HEAD, EYES, EARS, NOSE AND THROAT: No change in vision. No ear pain or discharge. No sore throat. CARDIOVASCULAR: "Thumping" chest pain, constant. RESPIRATORY: Dyspnea at rest. No cough or wheezing. GASTROINTESTINAL: No nausea, vomiting, diarrhea or constipation. GENITOURINARY: No dysuria, frequency, or change in urination. MUSCULOSKELETAL: No joint or muscle swelling or pain. No neck or back pain. SKIN: No rash or easy bruising. NEUROLOGIC: No headache, vertigo, loss of consciousness, or loss of sensation. PSYCHIATRIC: No depression or anxiety. ENDOCRINE: No increased thirst. No abnormal weight change. HEMATOLOGIC/LYMPHATIC: No anemia, easy bleeding, or history of blood clots. ALLERGIC/IMMUNOLOGIC: No hives or skin allergy. No latex allergy. PHYSICAL EXAM: GENERAL: The patient is awake, alert, and fully oriented, in no acute distress. HEAD: Normal with no signs of trauma. ENT: Pupils equal, round and reactive to light, extraocular movements intact, sclera anicteric, conjunctiva clear. Neck supple. LUNGS: Clear to auscultation bilaterally. Normal excursion. No respiratory distress or use of accessory muscles. CV: Tachycardic, RRR, S1/S2, no MRG. Cap refill < 2 sec. ABDOMEN: Soft, protuberant, very tender in epigastrium to light palpation. EXTREMITIES: 2+ RLE edema with cobblestoning and calf tenderness, chronic per patient. NEUROLOGICAL: Normal speech, normal gait. CN II-XII grossly intact. PSYCH: Normal mood, normal affect. SKIN: Warm, dry, normal turgor, no rashes or lesions noted. <Leatha Kimbrough - Last Filed: 08/28/18 14:58> <Susy Gonsales - Last Filed: 08/28/18 17:52> - General Chief Complaint: Chest Pain Stated Complaint: CHEST PAIN Time Seen by Provider: 08/28/18 12:42 Past History - Past Medical History Anemia: No Asthma: No Cancer: No Cardiac Disorders: Yes CVA: No COPD: No CHF: No Dementia: No Diabetes: Yes GI Disorders: No Disorders: No HTN: Yes Hypercholesterolemia: Yes Kidney Stones: No Liver Disease: No Seizures: Yes Thyroid Disease: No - Reproductive History Testicular Surgery: No - Immunization History Immunization Up to Date: Yes - Suicide/Smoking/Psychosocial Hx Smoking History: Never smoked Have you smoked in the past 12 months: No Number of Cigarettes Smoked Daily: 10 Information on smoking cessation initiated: No 'Breaking Loose' booklet given: 08/13/18 Hx Alcohol Use: No Drug/Substance Use Hx: No Substance Use Type: Alcohol (Started drinkind alcohol at age 16, consumes vodka 2 pints of vodka and 24x 24oz of beer daily. Last drink on 08/13/18), Cocaine ( Started using cocaine at age 37, consumes $200-300 daily. Last used 2 weeks ago) , Marijuana (Started smoking marijuana atage 16, consumes 20 joints daily. Last smoked 2 weeks ago) Hx Substance Use Treatment: Yes (4 previous inpt detox & 3-4 inpt rehab admissions) <Leatha Kimbrough - Last Filed: 08/28/18 14:58> <Susy Gonsales - Last Filed: 08/28/18 17:52> - Past Medical History Allergies/Adverse Reactions: Allergies Allergy/AdvReac Type Severity Reaction Status Date / Time No Known Allergies Allergy Verified 08/28/18 12:40 Home Medications: Ambulatory Orders Aspirin [Aspirin EC] 81 mg PO AM 09/15/14 Atorvastatin Ca [Lipitor -] 20 mg PO HS 09/15/14 Hydrochlorothiazide [Hctz -] 25 mg PO DAILY 09/15/14 Lisinopril [Prinivil] 10 mg PO AM 09/15/14 Metformin HCl [Glucophage] 500 mg PO BID 09/15/14 Warfarin Sodium [Coumadin] 10 mg PO DAILY 09/15/14 Fluoxetine HCl [Prozac -] 20 mg PO DAILY #30 capsule 09/16/14 traZODone HCL [Desyrel -] 50 mg PO HS #30 tablet 09/16/14 Diphenhydramine [Benadryl -] 50 mg PO HS 08/13/18 Mirtazapine [Remeron -] 45 mg PO HS 08/13/18 Sertraline HCl [Zoloft] 200 mg PO DAILY 08/13/18 *Physical Exam - Vital Signs Last Vital Signs Temp Pulse Resp BP Pulse Ox 98.1 F 106 H 16 134/93 100 08/28/18 12:40 08/28/18 12:40 08/28/18 12:40 08/28/18 12:40 08/28/18 12:40 <Leatha Kimbrough - Last Filed: 08/28/18 14:58> - Vital Signs Last Vital Signs Temp Pulse Resp BP Pulse Ox 98.1 F 98 H 18 134/84 97 08/28/18 12:40 08/28/18 13:26 08/28/18 13:26 08/28/18 13:26 08/28/18 13:26 <Susy Gonsales - Last Filed: 08/28/18 17:52> ED Treatment Course - LABORATORY CBC & Chemistry Diagram: 08/28/18 12:56 08/28/18 12:50 <Leatha Kimbrough - Last Filed: 08/28/18 14:58> - LABORATORY CBC & Chemistry Diagram: 08/28/18 12:56 08/28/18 12:50 - ADDITIONAL ORDERS Additional order review: Laboratory Results 08/28/18 08/28/18 08/28/18 12:56 12:56 12:56 WBC 6.8 RBC 4.92 Hgb 14.8 Hct 44.5 MCV 90.4 MCH 30.0 MCHC 33.1 RDW 14.6 Plt Count 330 D MPV 8.6 Absolute Neuts (auto) 4.5 Neutrophils % 66.8 Lymphocytes % 22.2 Monocytes % 9.5 Eosinophils % 0.6 Basophils % 0.9 Nucleated RBC % 0 PT with INR 39.30 H INR 3.29 H Sodium Potassium Chloride Carbon Dioxide Anion Gap BUN Creatinine Creat Clearance w eGFR Random Glucose Calcium Total Bilirubin AST ALT Alkaline Phosphatase Troponin I Total Protein Albumin Lipase 6924 H 08/28/18 12:50 WBC RBC Hgb Hct MCV MCH MCHC RDW Plt Count MPV Absolute Neuts (auto) Neutrophils % Lymphocytes % Monocytes % Eosinophils % Basophils % Nucleated RBC % PT with INR INR Sodium 128 L Potassium 4.5 Chloride 93 L Carbon Dioxide 27 Anion Gap 9 BUN 18 Creatinine 1.0 Creat Clearance w eGFR > 60 Random Glucose 250 H Calcium 9.0 Total Bilirubin 0.4 AST 28 ALT 41 Alkaline Phosphatase 175 H Troponin I < 0.02 Total Protein 8.4 H Albumin 3.7 Lipase 08/28/18 12:56 RBC 4.92 MCV 90.4 MCHC 33.1 RDW 14.6 MPV 8.6 Neutrophils % 66.8 Lymphocytes % 22.2 Monocytes % 9.5 Eosinophils % 0.6 Basophils % 0.9 - RADIOLOGY Radiology Studies Ordered: Category Date Time Status CHEST PA & LAT [RAD] Stat Radiology 08/28/18 12:43 Ordered - Medications Given in the ED: ED Medications Discontinued Medications Generic Name Dose Route Start Last Admin Trade Name Freq PRN Reason Stop Dose Admin Sodium Chloride 1,000 mls @ 1,000 mls/hr 08/28/18 12:43 08/28/18 13:01 Normal Saline - IV 08/28/18 13:42 1,000 mls/hr ASDIR STA Administration <Susy Gonsales - Last Filed: 08/28/18 17:52> Medical Decision Making - Medical Decision Making 08/28/18 13:29 A/P: 52-year-old male with abdominal pain, chest pain, shortness of breath, and sinus tachycardia. Differential includes ACS, pancreatitis (significant tenderness on exam), pneumonia/infection. 1. EKG 2. Labs including CBC, CMP, PT/INR, troponin, lipase 3. Chest x-ray 4. Consider chest/abdominal imaging after labs are reviewed 08/28/18 13:43 Na 128 noted. 08/28/18 14:56 Lipase 6924. Will obtain gallbladder u/s. IVF. Admission. <Leatha Kimbrough - Last Filed: 08/28/18 14:58> - Medical Decision Making The patient was seen and evaluated in conjunction with midlevel provider under my direct supervision, ancillary studies were reviewed. I agree with the plan as outlined by [employer] Kaylan. in summary, 52 YOM with ETOH dependence presenting from detox with AP, CP and SOB. vitals with tachycardia noted. likely pain, poor PO intake and early etoh w/d. labs and lytes with +Hypo-Na at 128, acute pancreatitis with sig elevated lipase >6000s. trop neg, EKG sinus tachy with LVH appearance, nonspecific T wave abnormalities , HR in 100s. given IVF hydration with LR, NPO, pain control with morphine, supportive care and bowel rest GB ultrasound to r/o gallstone pancreatitis, more likely ETOH pancreatitis. dispo: admit for pancreatitis, pain control, IVF, etoh w/d management and medical management. 08/28/18 17:51 08/28/18 17:52 <Susy Gonsales - Last Filed: 08/28/18 17:52> *DC/Admit/Observation/Transfer - Discharge Dispostion Decision to Admit order: Yes <Leatha Kimbrough - Last Filed: 08/28/18 14:58> - Discharge Dispostion Decision to Admit order: Yes Decision to Admit order Date/Time: 08/28/18 17:52 <Susy Gonsales - Last Filed: 08/28/18 17:52> Diagnosis at time of Disposition: Alcohol dependence Pancreatitis Qualifiers: Chronicity: acute - Discharge Dispostion Condition at time of disposition: Guarded
[2018-08-28 13:11] LABS: BASO % 0.9 % (0-2.0); EOS % 0.6 % (0-4.5); HEMATOCRIT 44.5 % (35.4-49); HEMOGLOBIN 14.8 GM/dL (11.7-16.9); LYMPH % 22.2 % (8-40); MCHC 33.1 g/dl (32.0-35.9); MEAN CELL VOLUME 90.4 fl (80-96); MEAN PLT VOLUME 8.6 fl (7.5-11.1); MONO % 9.5 % (3.8-10.2); NEUT % 66.8 % (42.8-82.8); PLATELET COUNT 330 K/MM3 (134-434); RBC 4.92 M/mm3 (4.00-5.60); RDW 14.6 % (11.9-15.9); WHITE BLOOD COUNT 6.8 K/mm3 (4.0-10.0)
[2018-08-28] MEDS ORDERED: FAMOTIDINE 20 MG/50 ML IVPB 20 MG in PREMIX 50 IVPB ONE (13:31)
[2018-08-28 13:38] LABS: ALBUMIN 3.7 g/dl (3.4-5.0); ALK PHOS 175 U/L (45-117); ANION GAP 9 MMOL/L (8-16); BILIRUBIN,TOTAL 0.4 mg/dL (0.2-1); BLOOD UREA NITROGEN 18 mg/dL (7-18); CHLORIDE 93 mmol/L (98-107); CO2 27 mmol/L (21-32); GLUCOSE,RANDOM 250 mg/dL (74-106); POTASSIUM 4.5 mmol/L (3.5-5.1); SGOT/AST 28 U/L (15-37); SGPT/ALT 41 U/L (13-61); SODIUM 128 mmol/L (136-145); TOT PROT 8.4 g/dl (6.4-8.2)
[2018-08-28 13:46] LABS: LIPASE 6924 U/L (73-393)
[2018-08-28 13:51] LABS: INR 3.29 (0.83-1.09); PROTHROMBIN TIME (PATIENT) 39.3 SEC (9.7-13.0)
[2018-08-28] MEDS ORDERED: LACTATED RINGERS SOLUTION 1000 ML INFUS.BAG IV ONE (14:14)
[2018-08-28 14:40] LABS: LDH 204 U/L (87-246)
[2018-08-28] MEDS ORDERED: FAMOTIDINE 20 MG/50 ML IVPB 20 MG/50 ML MG IVPB ONE (14:44)
[2018-08-28] MEDS ORDERED: LACTATED RINGERS SOLUTION 1,000 ML IV SCH (15:15)
--- NOTE | 2018-08-28 15:51 | HP ---
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 He reports that the pain started while at rest, rates it at a 7/10 in severity, and reports that it gets worse when he eats anything. He states that last week he experienced a similar pain, which he was seen for and told that he had " pancreas inflamed". Reports that he was sent back to [facility] and told to eat a light diet. Denies anything making it better. Reports associated nausea and vomiting 4x non-bloody, which has resolved since an hour before being examined. Currently reports feeling slightly better than when he first came to the emergency room and is not short of breath. Denies history of gallstones. Currently denies chest pain, shortness of breath, nausea, vomiting, diarrhea, fevers, chills. States that he took his warfarin today. Denies any bleeding. 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 Allergies No Known Allergies Allergy (Verified 08/28/18 12:40) HOME MEDICATIONS: Home Medications Medication Instructions Recorded Aspirin [Aspirin EC] 81 mg PO AM 09/15/14 Atorvastatin Ca [Lipitor -] 20 mg PO HS 09/15/14 Hydrochlorothiazide [Hctz -] 25 mg PO DAILY 09/15/14 Lisinopril [Prinivil] 10 mg PO AM 09/15/14 Metformin HCl [Glucophage] 500 mg PO BID 09/15/14 Warfarin Sodium [Coumadin] 10 mg PO DAILY 09/15/14 Fluoxetine HCl [Prozac -] 20 mg PO DAILY #30 capsule 09/16/14 traZODone HCL [Desyrel -] 50 mg PO HS #30 tablet 09/16/14 Diphenhydramine [Benadryl -] 50 mg PO HS 08/13/18 Mirtazapine [Remeron -] 45 mg PO HS 08/13/18 Sertraline HCl [Zoloft] 200 mg PO DAILY 08/13/18 REVIEW OF SYSTEMS CONSTITUTIONAL: Absent: fever, chills, diaphoresis, generalized weakness, malaise, loss of appetite, weight change HEENT: Absent: rhinorrhea, nasal congestion, throat pain, throat swelling, difficulty swallowing, mouth swelling, ear pain, eye pain, visual changes CARDIOVASCULAR: Absent: chest pain, syncope, palpitations, irregular heart rate, lightheadedness , peripheral edema RESPIRATORY: Absent: cough, shortness of breath, dyspnea with exertion, orthopnea, wheezing, stridor, hemoptysis GASTROINTESTINAL:abdominal pain Absent: abdominal distension, nausea, vomiting, diarrhea, constipation, melena, hematochezia GENITOURINARY: Absent: dysuria, frequency, urgency, hesitancy, hematuria, flank pain, genital pain MUSCULOSKELETAL: Absent: myalgia, arthralgia, joint swelling, back pain, neck pain SKIN: Absent: rash, itching, pallor HEMATOLOGIC/IMMUNOLOGIC: Absent: easy bleeding, easy bruising, lymphadenopathy, frequent infections ENDOCRINE: Absent: unexplained weight gain, unexplained weight loss, heat intolerance, cold intolerance NEUROLOGIC: Absent: headache, focal weakness or paresthesias, dizziness, unsteady gait, seizure, mental status changes, bladder or bowel incontinence PSYCHIATRIC: Absent: anxiety, depression, suicidal or homicidal ideation, hallucinations. PHYSICAL EXAMINATION Vital Signs - 24 hr 08/28/18 08/28/18 08/28/18 12:40 12:56 13:26 Temperature 98.1 F Pulse Rate 106 H Pulse Rate [ 98 H Apical] Respiratory 16 18 Rate Blood Pressure 134/93 Blood Pressure 134/84 [Right Arm] O2 Sat by Pulse 100 99 97 Oximetry (%) GENERAL: A&Ox3, no acute distress EYES: PERRLA, EOMI ENT: Moist mucus membranes NECK: No JVD LUNGS: CTA, no wheezes HEART: RRR, mild systolic murmur noted on exam ABDOMEN: Soft, BS present, tender to palpation diffusely, majority of the tenderness is in the epigastrum and in the lower quadrants. MUSCULOSKELETAL: No CVA Tenderness EXTREMITIES: 2+ pulses, no edema. NEUROLOGICAL: Cranial nerves II-XII intact. Motor strength 5/5 b/l, reflexes 2/ 4 b/l, sensation intact Laboratory Results - last 24 hr 08/28/18 08/28/18 08/28/18 12:50 12:56 12:56 WBC 6.8 RBC 4.92 Hgb 14.8 Hct 44.5 MCV 90.4 MCH 30.0 MCHC 33.1 RDW 14.6 Plt Count 330 D MPV 8.6 Absolute Neuts (auto) 4.5 Neutrophils % 66.8 Lymphocytes % 22.2 Monocytes % 9.5 Eosinophils % 0.6 Basophils % 0.9 Nucleated RBC % 0 PT with INR 39.30 H INR 3.29 H Sodium 128 L Potassium 4.5 Chloride 93 L Carbon Dioxide 27 Anion Gap 9 BUN 18 Creatinine 1.0 Creat Clearance w eGFR > 60 Random Glucose 250 H Calcium 9.0 Total Bilirubin 0.4 AST 28 ALT 41 Alkaline Phosphatase 175 H LD Total Troponin I < 0.02 Total Protein 8.4 H Albumin 3.7 Lipase 08/28/18 12:56 WBC RBC Hgb Hct MCV MCH MCHC RDW Plt Count MPV Absolute Neuts (auto) Neutrophils % Lymphocytes % Monocytes % Eosinophils % Basophils % Nucleated RBC % PT with INR INR Sodium Potassium Chloride Carbon Dioxide Anion Gap BUN Creatinine Creat Clearance w eGFR Random Glucose Calcium Total Bilirubin AST ALT Alkaline Phosphatase LD Total 204 Troponin I Total Protein Albumin Lipase 6924 H ASSESSMENT/PLAN: 52 year old male with a history of EtOH abuse, HTN, HLD, DM, 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 presents to the hospital for abdominal pain, chest pain, SOB and admitted for treatment of acute pancreatitis #Acute Pancreatitis: lipase 6900 with abdominal pain, likely due to EtOH, but could also be gallstone panc -US gallbladder -NPO except meds -LR @ 150cc/hr 1 bag -hold antihypertensives -tylenol for pain #Supratherapeutic INR -hold warfarin -recheck INR in AM #DVTs/PE -held warfarin -recheck INR #Diabetes: currently uncontrolled -A1C tomorrow -levemir 20 HS -ISS -BGMs #Hypertension -held antihypertensives for now #Depression: -mirtazapine -trazadone -fluoxetine #HLD -continue statin -continue asa #FEN -LR @ 150cc/hr -watch sodium tomorrow morning on BMP -NPO, advance as tolerated #Prophylaxis -INR supratherapeutic #Disposition -admit med surg Visit type - Emergency Visit Emergency Visit: Yes ED Registration Date: 08/28/18 Care time: The patient presented to the Emergency Department on the above date and was hospitalized for further evaluation of their emergent condition. - New Patient This patient is new to me today: Yes Date on this admission: 08/28/18 - Critical Care Critical Care patient: No
[2018-08-28] MEDS ORDERED: morphine CARPU-JECT 4 MG/1 ML DISP.SYRIN IVPUSH ONE (15:52)
[2018-08-28] MEDS ORDERED: morphine SULFATE 4 MG/ML VIAL ONE (16:18)
[2018-08-28] MEDS ORDERED: MORPHINE SULFATE 2 MG/ML VIAL ONE (16:18)
--- NOTE | 2018-08-28 17:25 | PN ---
Teaching Attending Note Name of Resident: Noe Ramsey ATTENDING PHYSICIAN STATEMENT I saw and evaluated the patient. I reviewed the resident's note and discussed the case with the resident. I agree with the resident's findings and plan as documented. SUBJECTIVE:52yo M with PMH HTN, dyslipidemia, DVT/PE s/p IVC filter on coumadin , seizure, DM and continuous polysubstence abuse presented to the Er with abdominal pain x2 days. started epigastric which then spread across his upper abdomen like a band and today started radiating to his chest. worse with food. assoc with multiple episodes of vomiting. had similar episode last week but not as severe came to the ER and told he had acute pancreatitis but was very mild and sent back to [facility] to complete detox. has not had similiar episode in the past or told he had issues wiht his pancreas or gallbladder. denies CP, SOB , fever, chills, C/D. no recent medication changes. has had very labile INR since started on coumadin. OBJECTIVE: Last Vital Signs Temp Pulse Resp BP Pulse Ox 98.1 F 92 H 18 141/84 96 08/28/18 12:40 08/28/18 16:49 08/28/18 16:49 08/28/18 16:49 08/28/18 16:49 General mild discomfort due to pain CV S1 S2 tachy Lungs CTA B/L no wheezing/rales/rhonchi Abdomen diffuse abdominal pain worse in the epigastric area. no rebound or guarding. neg reyes sign ASSESSMENT AND PLAN: 52yo M with PMH HTN, dyslipidemia, DVT/PE s/p IVC filter on coumadin, seizure, DM and continuous polysubstence abuse presented to the Er with abdominal pain x2 days 1. Acute pancreatitis- Medicine admission. likely due to ETOH use but will need to r/o gallstone pathology. NPO, LR at 150cc/H, pain and antiemetic. Check RUQ u/s and TG levels. will advance diet once pain subsides 2. Supratherpeutic INR- labile INR. did not take todays dose yet. will hold todays dose and trend INR. pt should d/w with PMD if would be a candidate for NOAC therapy given his difficulty controlling his INR 3. hyponatremia- dehydration. should improve with IVF 4. HTN- controlled. would hold his medication for now and re-start as needed 5. dyslipidemia- statin 6. DVT/PE s/p IVC filter- never had hypercoagulability workup. encouraged to f/ u with heme as outpatient for testing. especially since he had family members with VTE 7. seizure- not on antieleptics. possible ETOH withdrawal induced? 8. DM- hold oral agents. start BGM, ISS 9. Continuous polysubstance abuse- ETOH and cocaine (sniff). at [facility] completed detox and currently in inpatient rehab. desires to return when medically stable. watch for signs of withdrawal. educated on risks assoc if he was to return to substance abuse. verbalized understanding 10. DVT ppx- Supratherapeutic INR
[2018-08-28] MEDS: LACTATED RINGERS SOLUTION 1,000 ML IV SCH ×2 (18:12→19:55)
[2018-08-28] MEDS: INSULIN SLIDING SCALE (NOVOLOG) 1 VIAL SQ SCH ×2 (18:14→21:01)
[2018-08-28 20:03] VITALS: BMI 37.0
[2018-08-28] MEDS ORDERED: diphenhydrAMINE HCL 25 MG CAPSULE (FP) PO ONE (20:48)
[2018-08-28] MEDS ORDERED: MIRTAZAPINE 15 MG TABLET (FP) ONE (20:48)
[2018-08-28] MEDS: ATORVASTATIN CA 20 MG TABLET (FP) PO SCH (21:02)
[2018-08-28] MEDS: traZODone HCL 50 MG TABLET (FP) PO SCH (21:02)
[2018-08-28] MEDS ORDERED: MIRTAZAPINE 30 MG TABLET (FP) PO SCH (22:00)
[2018-08-28] MEDS ORDERED: diphenhydrAMINE HCL 50 MG CAPSULE PO SCH (22:00)
[2018-08-28] MEDS ORDERED: INSULIN (LEVEMIR) 100 UNITS/ML UNITS SQ SCH (22:00)
[2018-08-28] MEDS: ACETAMINOPHEN 325 MG TABLET (FP) PO PRN (23:48)
[2018-08-29] MEDS: LACTATED RINGERS SOLUTION 1,000 ML IV SCH ×2 (02:48→17:41)
[2018-08-29] MEDS ORDERED: PT OWN MED DRAWER 7, Y5N ONE ×4 (04:50→21:04)
[2018-08-29] MEDS ORDERED: INSULIN (NOVOLOG) ASPART 100 UNITS/ML 10ML VIAL ONE ×2 (05:19→16:35)
[2018-08-29] MEDS: ASPIRIN COATED 81 MG TABLET.EC PO SCH (06:01)
[2018-08-29] MEDS: INSULIN SLIDING SCALE (NOVOLOG) 1 VIAL SQ SCH ×4 (06:01→21:16)
[2018-08-29] MEDS: ACETAMINOPHEN 325 MG TABLET (FP) PO PRN ×3 (06:32→21:41)
[2018-08-29] MEDS ORDERED: LISINOPRIL 10 MG TABLET (FP) PO SCH (07:00)
[2018-08-29 07:53] LABS: HEMATOCRIT 42.9 % (35.4-49); HEMOGLOBIN 14.1 GM/dL (11.7-16.9); MCH 29.9 pg (25.7-33.7); MCHC 32.7 g/dl (32.0-35.9); MEAN CELL VOLUME 91.3 fl (80-96); MEAN PLT VOLUME 8.4 fl (7.5-11.1); PLATELET COUNT 299 K/MM3 (134-434); RDW 14.5 % (11.9-15.9)
[2018-08-29 08:19] LABS: ANION GAP 5 MMOL/L (8-16); BLOOD UREA NITROGEN 15 mg/dL (7-18); CALCIUM 9.2 mg/dL (8.5-10.1); CHLORIDE 96 mmol/L (98-107); CO2 27 mmol/L (21-32); CREATININE 0.9 mg/dL (0.55-1.3); GLUCOSE,RANDOM 202 mg/dL (74-106); MAGNESIUM 2.5 mg/dL (1.8-2.4); PHOSPHOROUS 3.5 mg/dL (2.5-4.9); SODIUM 128 mmol/L (136-145)
[2018-08-29] MEDS: FLUoxetine HCL 20 MG CAPSULE (FP) PO SCH (09:50)
[2018-08-29] MEDS: SERTRALINE HCL 50 MG TABLET (FP) PO SCH (09:51)
--- NOTE | 2018-08-29 09:55 | PN ---
Progress Note (short form) - Note Progress Note: c/o diffuse abdominal pain. improved since yesterday but remains tender. denies CP, SOB, fever, chills, N/V/C/D, no desire to eat Current Medications Generic Name Dose Route Start Last Admin Trade Name Freq PRN Reason Stop Dose Admin Acetaminophen 650 mg 08/28/18 16:24 08/29/18 06:32 Tylenol - PO 650 mg Q6H PRN Administration PAIN Aspirin 81 mg 08/29/18 07:00 08/29/18 06:01 Ecotrin - PO 81 mg AM JOSS Administration Atorvastatin Calcium 20 mg 08/28/18 22:00 08/28/18 21:02 Lipitor - PO 20 mg HS JOSS Administration Diphenhydramine HCl 50 mg 08/29/18 22:00 Benadryl - PO HS JOSS Fluoxetine HCl 20 mg 08/29/18 10:00 08/29/18 09:50 Prozac - PO 20 mg DAILY JOSS Administration Lactated Ringer's 1,000 mls @ 150 mls/hr 08/28/18 17:37 08/29/18 02:48 Lactated Ringers Solution IV 08/29/18 21:54 150 mls/hr ASDIR JOSS Administration Insulin Aspart 0 vial 08/28/18 16:30 08/29/18 06:01 Novolog Vial Sliding Scale - SQ 4 units ACHS JOSS Administration Protocol Insulin Detemir 20 units 08/28/18 22:00 08/28/18 21:01 Levemir Vial SQ 20 units HS JOSS Administration Mirtazapine 30 mg/ Mirtazapine 45 mg 08/29/18 22:00 15 mg PO HS JOSS Sertraline HCl 200 mg 08/29/18 10:00 08/29/18 09:51 Zoloft - PO 200 mg DAILY JOSS Administration Trazodone HCl 50 mg 08/28/18 22:00 08/28/18 21:02 Desyrel - PO 50 mg HS JOSS Administration Last Vital Signs Temp Pulse Resp BP Pulse Ox 97.7 F 91 H 20 150/98 95 08/29/18 06:00 08/29/18 06:00 08/29/18 06:00 08/29/18 06:00 08/28/18 21:00 General NAD CV S1 S2 RRR no murmur/rub/gallops Lungs CTA B/L no wheezing/rales/rhonchi Abdomen diffuse abdominal pain worse in the epigastric area. no rebound or guarding. neg reyes sign CBCD WBC 5.0 K/mm3 (4.0-10.0) 08/29/18 06:40 RBC 4.70 M/mm3 (4.00-5.60) 08/29/18 06:40 Hgb 14.1 GM/dL (11.7-16.9) 08/29/18 06:40 Hct 42.9 % (35.4-49) 08/29/18 06:40 MCV 91.3 fl (80-96) 08/29/18 06:40 MCHC 32.7 g/dl (32.0-35.9) 08/29/18 06:40 RDW 14.5 % (11.9-15.9) 08/29/18 06:40 Plt Count 299 K/MM3 (134-434) 08/29/18 06:40 MPV 8.4 fl (7.5-11.1) 08/29/18 06:40 CMP Sodium 128 mmol/L (136-145) L 08/29/18 06:40 Potassium 5.0 mmol/L (3.5-5.1) 08/29/18 06:40 Chloride 96 mmol/L (98-107) L 08/29/18 06:40 Carbon Dioxide 27 mmol/L (21-32) 08/29/18 06:40 Anion Gap 5 MMOL/L (8-16) L 08/29/18 06:40 BUN 15 mg/dL (7-18) 08/29/18 06:40 Creatinine 0.9 mg/dL (0.55-1.3) 08/29/18 06:40 Creat Clearance w eGFR > 60 (>60) 08/29/18 06:40 Calcium 9.2 mg/dL (8.5-10.1) 08/29/18 06:40 Total Bilirubin 0.4 mg/dL (0.2-1) 08/28/18 12:50 AST 28 U/L (15-37) 08/28/18 12:50 ALT 41 U/L (13-61) 08/28/18 12:50 Alkaline Phosphatase 175 U/L (45-117) H 08/28/18 12:50 Total Protein 8.4 g/dl (6.4-8.2) H 08/28/18 12:50 Albumin 3.7 g/dl (3.4-5.0) 08/28/18 12:50 ASSESSMENT AND PLAN: 52yo M with PMH HTN, dyslipidemia, DVT/PE s/p IVC filter on coumadin, seizure, DM and continuous polysubstence abuse presented to the Er with abdominal pain x2 days 1. Acute pancreatitis-due to ETOH. slight improvement but remains painful. u/s negative for gallstone pathology. will increase IVF to 200cc/H. cont NPO, pain and nausea control. TG level pending. 2. Supratherpeutic INR- labile INR. awaiting todays value. will re-start when < 3. pt should d/w with PMD if would be a candidate for NOAC therapy given his difficulty controlling his INR 3. hyponatremia- dehydration. should improve with IVF 4. HTN- elevated. start lisinopril. would hold diuretic 5. dyslipidemia- statin 6. DVT/PE s/p IVC filter- never had hypercoagulability workup. encouraged to f/ u with heme as outpatient for testing. especially since he had family members with VTE 7. seizure- one episode in 2013. unclear etiology but claims not from ETOH or BZD withdrawal. no recurrence since then. 8. DM- hold oral agents. start BGM, ISS, will reduce levemir dose as NPO 9. Continuous polysubstance abuse- ETOH and cocaine (sniff). at [facility] completed detox and currently in inpatient rehab. desires to return when medically stable. watch for signs of withdrawal. educated on risks assoc if he was to return to substance abuse. verbalized understanding 10. DVT ppx- Supratherapeutic INR Visit type - Emergency Visit Emergency Visit: Yes ED Registration Date: 08/28/18 Care time: The patient presented to the Emergency Department on the above date and was hospitalized for further evaluation of their emergent condition. - New Patient This patient is new to me today: No - Critical Care Critical Care patient: No - Discharge Referral Referred to [facility] Med P.C.: No
[2018-08-29] MEDS ORDERED: PATIENT'S OWN MEDICATION (NON-FORMULARY) (Sertraline Hcl [Zoloft] 200 MG) PO SCH (10:00)
[2018-08-29] MEDS ORDERED: HYDROCHLOROTHIAZIDE 25 MG TABLET (FP) PO SCH (10:00)
[2018-08-29] MEDS: LACTATED RINGERS SOLUTION 1,000 ML/1,000 ML INFUS.BAG IV SCH ×3 (11:19→23:23)
[2018-08-29] MEDS: LISINOPRIL 10 MG TABLET (FP) PO SCH (11:19)
[2018-08-29 11:46] LABS: INR 2.76 (0.83-1.09); PROTHROMBIN TIME (PATIENT) 32.9 SEC (9.7-13.0)
[2018-08-29] MEDS ORDERED: ONDANSETRON 4 MG/2 ML VIAL IVPB PRN (12:42)
[2018-08-29] MEDS: WARFARIN NA 2.5 MG TABLET (FP) PO SCH (17:08)
--- NOTE | 2018-08-29 17:16 | EKG ---
Test Reason : Blood Pressure : / mmHG Vent. Rate : 107 BPM Atrial Rate : 107 BPM P-R Int : 146 ms QRS Dur : 084 ms QT Int : 326 ms P-R-T Axes : 055 002 024 degrees QTc Int : 435 ms SINUS TACHYCARDIA POSSIBLE LEFT ATRIAL ENLARGEMENT BORDERLINE ECG WHEN COMPARED WITH ECG OF 20-AUG-2018 11:35, NO SIGNIFICANT CHANGE WAS FOUND BASELINE ARTIFACT Confirmed by BIRGIT BA, ANI ([id number]) on 08/29/2018 5:15:58 PM Referred By: Confirmed By:ANI GENAO MD
[2018-08-29] MEDS: diphenhydrAMINE HCL 25 MG CAPSULE (FP) PO SCH (21:10)
[2018-08-29] MEDS: MIRTAZAPINE 30 MG, MIRTAZAPINE 15 MG PO SCH (21:11)
[2018-08-29] MEDS: ATORVASTATIN CA 20 MG TABLET (FP) PO SCH (21:11)
[2018-08-29] MEDS: traZODone HCL 50 MG TABLET (FP) PO SCH (21:11)
[2018-08-29] MEDS: INSULIN (LEVEMIR) 100 UNITS/ML UNITS SQ SCH (21:14)
[2018-08-30] MEDS: LACTATED RINGERS SOLUTION 1,000 ML/1,000 ML INFUS.BAG IV SCH ×4 (05:58→22:43)
[2018-08-30] MEDS: ASPIRIN COATED 81 MG TABLET.EC PO SCH (06:14)
[2018-08-30] MEDS: ACETAMINOPHEN 325 MG TABLET (FP) PO PRN ×4 (06:14→23:24)
[2018-08-30] MEDS: INSULIN SLIDING SCALE (NOVOLOG) 1 VIAL SQ SCH ×4 (06:14→22:42)
[2018-08-30 08:05] LABS: INR 2.73 (0.83-1.09); PROTHROMBIN TIME (PATIENT) 32.5 SEC (9.7-13.0)
[2018-08-30 08:20] LABS: ANION GAP 5 MMOL/L (8-16); BLOOD UREA NITROGEN 9 mg/dL (7-18); CALCIUM 8.5 mg/dL (8.5-10.1); CHLORIDE 104 mmol/L (98-107); CO2 27 mmol/L (21-32); CREATININE 0.8 mg/dL (0.55-1.3); GLUCOSE,RANDOM 147 mg/dL (74-106); POTASSIUM 4.5 mmol/L (3.5-5.1); SODIUM 136 mmol/L (136-145)
--- NOTE | 2018-08-30 08:20 | PN ---
Physical Exam: SUBJECTIVE: Patient seen and examined at bedside. tolerating diet. no acute complaints. OBJECTIVE: Vital Signs Period Temp Pulse Resp BP Sys/Farr Pulse Ox Last 24 Hr 98.0 F-98.2 F 83-93 18-20 123-130/72-75 95-97 GENERAL: A&Ox3, no acute distress EYES: PERRLA, EOMI ENT: Moist mucus membranes NECK: No JVD LUNGS: CTA, no wheezes HEART: RRR, mild systolic murmur noted on exam ABDOMEN: Soft, BS present, non-tender to palpation MUSCULOSKELETAL: No CVA Tenderness EXTREMITIES: 2+ pulses, no edema. NEUROLOGICAL: Cranial nerves II-XII intact. Laboratory Results - last 24 hr 08/29/18 08/29/18 08/29/18 10:00 10:40 11:27 PT with INR 32.90 H INR 2.76 H POC Glucometer 189 Triglycerides 112 08/29/18 08/29/18 08/30/18 16:40 21:13 05:53 PT with INR INR POC Glucometer 253 217 161 Triglycerides 08/30/18 07:00 PT with INR 32.50 H INR 2.73 H POC Glucometer Triglycerides Active Medications Generic Name Dose Route Start Last Admin Trade Name Freq PRN Reason Stop Dose Admin Acetaminophen 650 mg 08/28/18 16:24 08/30/18 06:14 Tylenol - PO 650 mg Q6H PRN Administration PAIN Aspirin 81 mg 08/29/18 07:00 08/30/18 06:14 Ecotrin - PO 81 mg AM JOSS Administration Atorvastatin Calcium 20 mg 08/28/18 22:00 08/29/18 21:11 Lipitor - PO 20 mg HS JOSS Administration Diphenhydramine HCl 50 mg 08/29/18 22:00 08/29/18 21:10 Benadryl - PO 50 mg HS JOSS Administration Fluoxetine HCl 20 mg 08/29/18 10:00 08/29/18 09:50 Prozac - PO 20 mg DAILY JOSS Administration Lactated Ringer's 1,000 ml in 1,000 mls @ 200 mls/hr 08/29/18 10:15 08/30/18 05:58 Lactated Ringers Solution IV 200 mls/hr ASDIR JOSS Administration Insulin Aspart 0 vial 08/28/18 16:30 08/30/18 06:14 Novolog Vial Sliding Scale - SQ 2 units [facility] Administration Protocol Insulin Detemir 10 units 08/29/18 10:00 08/29/18 21:14 Levemir Vial SQ 10 units HS [facility] Administration Lisinopril 10 mg 08/29/18 10:15 08/29/18 11:19 Prinivil PO 10 mg DAILY JOSS Administration Mirtazapine 30 mg/ Mirtazapine 45 mg 08/29/18 22:00 08/29/18 21:11 15 mg PO 45 mg HS [facility] Administration Ondansetron HCl 8 mg 08/29/18 12:42 08/29/18 12:56 Zofran Injection IVPB 8 mg Q6H PRN Administration NAUSEA Sertraline HCl 200 mg 08/29/18 10:00 08/29/18 09:51 Zoloft - PO 200 mg DAILY [facility] Administration Trazodone HCl 50 mg 08/28/18 22:00 08/29/18 21:11 Desyrel - PO 50 mg HS [facility] Administration Warfarin Sodium 7.5 mg 08/29/18 18:00 08/29/18 17:08 Coumadin - PO 7.5 mg DAILY@1800 [facility] Administration Current Medications Acetaminophen (Tylenol -) 650 mg PO Q6H PRN PRN Reason: PAIN Last Admin: 08/30/18 13:09 Dose: 650 mg Aspirin (Ecotrin -) 81 mg PO AM [facility] Last Admin: 08/30/18 06:14 Dose: 81 mg Atorvastatin Calcium (Lipitor -) 20 mg PO HS [facility] Last Admin: 08/29/18 21:11 Dose: 20 mg Diphenhydramine HCl (Benadryl -) 50 mg PO HS [facility] Last Admin: 08/29/18 21:10 Dose: 50 mg Fluoxetine HCl (Prozac -) 20 mg PO DAILY [facility] Last Admin: 08/30/18 10:13 Dose: 20 mg Lactated Ringer's (Lactated Ringers Solution) 1,000 ml in 1,000 mls @ 200 mls/ hr IV ASDIR [facility] Last Admin: 08/30/18 10:48 Dose: 200 mls/hr Insulin Aspart (Novolog Vial Sliding Scale -) 0 vial SQ ACHS [facility]; Protocol Last Admin: 08/30/18 12:47 Dose: 6 units Insulin Detemir (Levemir Vial) [address] [facility] Last Admin: 08/29/18 21:14 Dose: 10 units Lisinopril (Prinivil) 10 mg PO DAILY [facility] Last Admin: 08/30/18 10:12 Dose: 10 mg Mirtazapine 30 mg/ Mirtazapine (15 mg) 45 mg PO [facility] Last Admin: 08/29/18 21:11 Dose: 45 mg Ondansetron HCl (Zofran Injection) 8 mg IVPB Q6H PRN PRN Reason: NAUSEA Last Admin: 08/29/18 12:56 Dose: 8 mg Sertraline HCl (Zoloft -) 200 mg PO DAILY [facility] Last Admin: 08/30/18 10:12 Dose: 200 mg Trazodone HCl (Desyrel -) 50 mg PO 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 presents to the hospital for abdominal pain, chest pain, SOB and admitted for treatment of acute pancreatitis #Acute Pancreatitis: improved, patient is not in pain -started diet this AM, patient is tolerating -LR @ 200cc/hr 1 bag -tylenol for pain #Supratherapeutic INR -improved -warfarin 7.5PO -will need to consider NOAC for this patient -recheck INR in AM #DVTs/PE -warfarin 7.5 #Diabetes: sugars in 200s -levemir 10 HS -ISS -BGMs #Hypertension -cont lisinopril #Depression: -mirtazapine -trazadone -fluoxetine #HLD -continue statin -continue asa #FEN -LR @ 200cc/hr -watch sodium tomorrow morning on BMP -diabetic diet #Prophylaxis -warfarin 7.5 #Disposition -admit med surg -will likely d/c to rehab tomorrow Visit type - Emergency Visit Emergency Visit: No - New Patient This patient is new to me today: No - Critical Care Critical Care patient: No
[2018-08-30] MEDS: LISINOPRIL 10 MG TABLET (FP) PO SCH (10:12)
[2018-08-30] MEDS: SERTRALINE HCL 50 MG TABLET (FP) PO SCH (10:12)
[2018-08-30] MEDS: FLUoxetine HCL 20 MG CAPSULE (FP) PO SCH (10:13)
--- NOTE | 2018-08-30 13:08 | PN ---
Teaching Attending Note Name of Resident: Noe Ramsey ATTENDING PHYSICIAN STATEMENT I saw and evaluated the patient. I reviewed the resident's note and discussed the case with the resident. I agree with the resident's findings and plan as documented. SUBJECTIVE:tolerating liquid diet. requesting regular food. denies CP, SOB, fever, chills, N/V/C/D OBJECTIVE: Last Vital Signs Temp Pulse Resp BP Pulse Ox 98.1 F 85 18 129/84 97 08/30/18 09:00 08/30/18 09:00 08/30/18 09:00 08/30/18 09:00 08/30/18 09:00 General NAD Abdomen soft NT/ND ASSESSMENT AND PLAN: 52yo M with PMH HTN, dyslipidemia, DVT/PE s/p IVC filter on coumadin, seizure, DM and continuous polysubstence abuse presented to the Er with abdominal pain x2 days 1. Acute pancreatitis-due to ETOH. improved. diet advance to liquid last evening and tolerating well. will place on regular diet. \ 2. Supratherpeutic INR- labile INR. INR therpaeutic. coumadin reduced to 7.5mg yesterday. should have INR check in 2 days. pt should d/w with PMD if would be a candidate for NOAC therapy given his difficulty controlling his INR 3. hyponatremia- dehydration. resolved 4. HTN- elevated. resume home meds 5. dyslipidemia- statin 6. DVT/PE s/p IVC filter- never had hypercoagulability workup. encouraged to f/ u with heme as outpatient for testing. especially since he had family members with VTE 7. seizure- one episode in 2013. unclear etiology but claims not from ETOH or BZD withdrawal. no recurrence since then. 8. DM- hold oral agents. start BGM, ISS, will reduce levemir dose as NPO 9. Continuous polysubstance abuse- ETOH and cocaine (sniff). at [facility] completed detox and currently in inpatient rehab. desires to return when medically stable. watch for signs of withdrawal. educated on risks assoc if he was to return to substance abuse. verbalized understanding 10. DVT ppx- coumadin 11. spoke with CM who will call [facility] if he can return to inpatient rehab today
--- NOTE | 2018-08-30 16:18 | PN ---
Physical Exam: SUBJECTIVE: Patient seen and examined OBJECTIVE: Vital Signs Period Temp Pulse Resp BP Sys/Farr Pulse Ox Last 24 Hr 98.1 F-98.2 F 83-91 16-20 123-130/72-84 97-97 GENERAL: The patient is awake, alert, and fully oriented, in no acute distress. HEAD: Normal with no signs of trauma. EYES: PERRL, extraocular movements intact, sclera anicteric, conjunctiva clear. No ptosis. ENT: Ears normal, nares patent, oropharynx clear without exudates, moist mucous membranes. NECK: Trachea midline, full range of motion, supple. LUNGS: Breath sounds equal, clear to auscultation bilaterally, no wheezes, no crackles, no accessory muscle use. HEART: Regular rate and rhythm, S1, S2 without murmur, rub or gallop. ABDOMEN: Soft, nontender, nondistended, normoactive bowel sounds, no guarding, no rebound, no hepatosplenomegaly, no masses. EXTREMITIES: 2+ pulses, warm, well-perfused, no edema. NEUROLOGICAL: Cranial nerves II through XII grossly intact. Normal speech, gait not observed. PSYCH: Normal mood, normal affect. SKIN: Warm, dry, normal turgor, no rashes or lesions noted Laboratory Results - last 24 hr 08/29/18 08/29/18 08/30/18 16:40 21:13 05:53 PT with INR INR Sodium Potassium Chloride Carbon Dioxide Anion Gap BUN Creatinine Creat Clearance w eGFR POC Glucometer 253 217 161 Random Glucose Calcium 08/30/18 08/30/18 08/30/18 07:00 07:00 11:36 PT with INR 32.50 H INR 2.73 H Sodium 136 Potassium 4.5 Chloride 104 Carbon Dioxide 27 Anion Gap 5 L BUN 9 Creatinine 0.8 Creat Clearance w eGFR > 60 POC Glucometer 235 Random Glucose 147 H Calcium 8.5 Active Medications Generic Name Dose Route Start Last Admin Trade Name Freq PRN Reason Stop Dose Admin Acetaminophen 650 mg 08/28/18 16:24 08/30/18 13:09 Tylenol - PO 650 mg Q6H PRN Administration PAIN Aspirin 81 mg 08/29/18 07:00 08/30/18 06:14 Ecotrin - PO 81 mg AM JOSS Administration Atorvastatin Calcium 20 mg 08/28/18 22:00 08/29/18 21:11 Lipitor - PO 20 mg HS JOSS Administration Diphenhydramine HCl 50 mg 08/29/18 22:00 08/29/18 21:10 Benadryl - PO 50 mg HS JOSS Administration Fluoxetine HCl 20 mg 08/29/18 10:00 08/30/18 10:13 Prozac - PO 20 mg DAILY JOSS Administration Lactated Ringer's 1,000 ml in 1,000 mls @ 200 mls/hr 08/29/18 10:15 08/30/18 10:48 Lactated Ringers Solution IV 200 mls/hr ASDIR JOSS Administration Insulin Aspart 0 vial 08/28/18 16:30 08/30/18 12:47 Novolog Vial Sliding Scale - SQ 6 units ACHS JOSS Administration Protocol Insulin Detemir 10 units 08/29/18 10:00 08/29/18 21:14 Levemir Vial SQ 10 units HS JOSS Administration Lisinopril 10 mg 08/29/18 10:15 08/30/18 10:12 Prinivil PO 10 mg DAILY JOSS Administration Mirtazapine 30 mg/ Mirtazapine 45 mg 08/29/18 22:00 08/29/18 21:11 15 mg PO 45 mg HS JOSS Administration Ondansetron HCl 8 mg 08/29/18 12:42 08/29/18 12:56 Zofran Injection IVPB 8 mg Q6H PRN Administration NAUSEA Sertraline HCl 200 mg 08/29/18 10:00 08/30/18 10:12 Zoloft - PO 200 mg DAILY JOSS Administration Trazodone HCl 50 mg 08/28/18 22:00 08/29/18 21:11 Desyrel - PO 50 mg HS JOSS Administration Warfarin Sodium 7.5 mg 08/29/18 18:00 08/29/18 17:08 Coumadin - PO 7.5 mg DAILY@1800 JOSS Administration ASSESSMENT/PLAN: Visit type - Emergency Visit Emergency Visit: Yes ED Registration Date: 08/28/18 Care time: The patient presented to the Emergency Department on the above date and was hospitalized for further evaluation of their emergent condition. - New Patient This patient is new to me today: Yes Date on this admission: 08/30/18 - Critical Care Critical Care patient: No
[2018-08-30] MEDS: WARFARIN NA 2.5 MG TABLET (FP) PO SCH (17:26)
[2018-08-30] MEDS ORDERED: PT OWN MED DRAWER 7, Y5N ONE (21:46)
[2018-08-30] MEDS: ATORVASTATIN CA 20 MG TABLET (FP) PO SCH (21:53)
[2018-08-30] MEDS: diphenhydrAMINE HCL 25 MG CAPSULE (FP) PO SCH (21:53)
[2018-08-30] MEDS: traZODone HCL 50 MG TABLET (FP) PO SCH (21:53)
[2018-08-30] MEDS: INSULIN (LEVEMIR) 100 UNITS/ML UNITS SQ SCH (21:54)
[2018-08-30] MEDS: MIRTAZAPINE 30 MG, MIRTAZAPINE 15 MG PO SCH (21:54)
[2018-08-31] MEDS: ACETAMINOPHEN 325 MG TABLET (FP) PO PRN ×2 (06:03→15:24)
[2018-08-31] MEDS: LACTATED RINGERS SOLUTION 1,000 ML/1,000 ML INFUS.BAG IV SCH ×2 (06:03→09:32)
[2018-08-31] MEDS: ASPIRIN COATED 81 MG TABLET.EC PO SCH (06:03)
[2018-08-31] MEDS: INSULIN SLIDING SCALE (NOVOLOG) 1 VIAL SQ SCH ×2 (06:06→12:09)
[2018-08-31 09:24] LABS: INR 2.65 (0.83-1.09); PROTHROMBIN TIME (PATIENT) 31.6 SEC (9.7-13.0)
[2018-08-31] MEDS ORDERED: PT OWN MED DRAWER 7, Y5N ONE (09:28)
[2018-08-31] MEDS: SERTRALINE HCL 50 MG TABLET (FP) PO SCH (09:30)
[2018-08-31] MEDS: FLUoxetine HCL 20 MG CAPSULE (FP) PO SCH (09:31)
[2018-08-31] MEDS: LISINOPRIL 10 MG TABLET (FP) PO SCH (09:53)
[2018-08-31] MEDS ORDERED: LACTATED RINGERS SOLUTION 1,000 ML/1,000 ML INFUS.BAG IV SCH (11:13)
--- NOTE | 2018-08-31 14:09 | PN ---
Teaching Attending Note Name of Resident: Pat Ha ATTENDING PHYSICIAN STATEMENT I saw and evaluated the patient. I reviewed the resident's note and discussed the case with the resident. I agree with the resident's findings and plan as documented. SUBJECTIVE:asymptomatic. tolerating diet. no longer having abdominal pain. 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 Acute pancreatitis-due to ETOH. improved. tolerating regular dit. 2. Supratherpeutic INR- labile INR. INR therpaeutic. cont coumadin 7.5mg. should have INR check in 2 days. pt should d/w with PMD if would be a candidate for NOAC therapy given his difficulty controlling his INR 3. hyponatremia- dehydration. resolved 4. HTN- controlled. 5. dyslipidemia- statin 6. DVT/PE s/p IVC filter- never had hypercoagulability workup. encouraged to f/ u with heme as outpatient for testing. especially since he had family members with VTE 7. seizure- one episode in 2013. unclear etiology but claims not from ETOH or BZD withdrawal. no recurrence since then. 8. DM- hold oral agents. start BGM, ISS, will reduce levemir dose as NPO 9. Continuous polysubstance abuse- ETOH and cocaine (inhalation). at [facility] completed detox and currently in inpatient rehab. desires to return when medically stable. watch for signs of withdrawal. educated on risks assoc if he was to return to substance abuse. verbalized understanding 10. DVT ppx- coumadin 11. d/c to [facility] to complete inpatient rehab
[2018-08-31 14:26] VITALS: BP 122/84; PULSE 92; TEMP 98
--- NOTE | 2018-08-31 16:02 | DS ---
Physical Exam: SUBJECTIVE: Patient seen and examined at bedside this morning. No acute events overnight. Patient has no new complaints. Reports he is feeling well and tolerated regular diet. OBJECTIVE: Vital Signs Period Temp Pulse Resp BP Sys/Farr Pulse Ox Last 24 Hr 98 F-98.2 F 72-92 18-20 121-147/73-84 99 PHYSICAL EXAM GENERAL: The patient is awake, alert, and fully oriented, in no acute distress. HEAD: Normal with no signs of trauma. EYES: PERRLA, EOMI, sclera anicteric, conjunctiva clear. ENT: Ears normal, nares patent, oropharynx clear without exudates, moist mucous membranes. NECK: Trachea midline, full range of motion, supple. LUNGS: Breath sounds equal, clear to auscultation bilaterally. HEART: Regular rate and rhythm, S1, S2 without murmur, rub or gallop. ABDOMEN: Soft, nontender, nondistended, normoactive bowel sounds. EXTREMITIES: 2+ pulses, warm, well-perfused, no edema. LABS Laboratory Results - last 24 hr 08/30/18 08/30/18 08/31/18 17:56 21:52 06:05 PT with INR INR POC Glucometer 155 213 186 08/31/18 08/31/18 08:30 11:49 PT with INR 31.60 H INR 2.65 H POC Glucometer 223 Imaging RUQ ultrasound - Hepatomegaly with fatty infiltration versus hepatocellular disease. No gross gallstones are identified. Limited visualization of the pancreas. HOSPITAL COURSE: Date of Admission:08/28/18 Date of Discharge: 08/31/18 Patient is a 52 year old male with past medical history of HTN, dyslipidemia, DVT/PE s/p IVC filter on coumadin, seizure, DM, and continuous polysubstance abuse presented to the ED with sudden onset, severe abdominal pain for 2 days. Patient was admitted for acute pancreatitis likely secondary to alcohol use. RUQ ultrasound was done which was negative for gallstone. Patient was started on IV fluids, was placed on NPO initially and given medications for pain. Patient clinically improved, diet was advanced and he was able to tolerate. Patient was also noted to have supratherapeutic INR. Coumadin was held and restarted when INR <3. Patient was discharged to [facility] for continued inpatient rehab. Minutes to complete discharge: 40 Discharge Summary Reason For Visit: PANCREATITIS Condition: Stable - Instructions Diet, Activity, Other Instructions: You were admitted because you had belly pain for the past 2 days. This is because your pancreas is inflamed, likely caused by excessive alcohol drinking. You were given IV fluids and initially was not given any food so your bowels could rest. We slowly advanced your diet which you tolerated well. Your INR was also noted to be elevated. We held your coumadin initially and watched your INR, which returned to a normal level. We decreased your coumadin ( warfarin) dose to 7.5mg daily. It is important you follow-up with your primary care doctor to have your INR checked after 2 days, and to discuss other options , including the new oral anticoagulants. Please follow-up with hematology as outpatient to discuss why you had blood clots in the past and to go over options other than warfarin for anticoagulation. Please take note of the following changes to your medication and take them as prescribed: 1. Coumadin 7.5 mg daily Continue your other home medications as prescribed. Avoid drinking alcohol and taking drugs. Drink plenty of fluids. You will be discharged to [facility] for continuation of inpatient rehab. Follow-ups: -Please follow-up with your primary care doctor in 1 week. -Please make an appointment with the plant chief Dr. Stephens within 1 week of discharge. Call 911 or go to the ED for any worsening fever, chills, belly pain, shortness of breath or any new concerns noted. Referrals: Todd Stephens MD [Staff Physician] - 1 Week Disposition: TRANSFER ACUTE CARE/OTHER HOSP - Home Medications Comprehensive Discharge Medication List: Ambulatory Orders Atorvastatin Ca [Lipitor] 20 mg PO HS 09/15/14 Hydrochlorothiazide [Hctz -] 25 mg PO DAILY 09/15/14 Lisinopril [Prinivil] 10 mg PO AM 09/15/14 Metformin HCl [Glucophage] 500 mg PO BID 09/15/14 Fluoxetine HCl [Prozac -] 20 mg PO DAILY #30 capsule 09/16/14 traZODone HCL [Desyrel -] 50 mg PO HS #30 tablet 09/16/14 Diphenhydramine [Benadryl Capsule -] 50 mg PO HS 08/13/18 Mirtazapine [Remeron -] 45 mg PO HS 08/13/18 Sertraline HCl [Zoloft] 200 mg PO DAILY 08/13/18 Acetaminophen [Tylenol .Regular Strength -] 650 mg PO Q6H PRN tablet 08/31/18 Aspirin Coated [Ecotrin -] 81 mg PO AM tablet.ec 08/31/18 Warfarin Na [Coumadin -] 7.5 mg PO DAILY@1800 tablet 08/31/18 This patient is new to me today: Yes Date on this admission: 09/01/18 Emergency Visit: Yes ED Registration Date: 08/28/18 Care time: The patient presented to the Emergency Department on the above date and was hospitalized for further evaluation of their emergent condition. Critical Care patient: No - Discharge Referral Referred to [facility] No
== END 2018-08-31 16:00 | disposition other institution (70) | DRG 282 ==
LOC: JER 12:29 → JERBED 14:57 → J8W 17:16
PROVIDERS: ADMIT Internal Medicine; ATTEND Internal Medicine
DX: K85.20 Alcohol induced acute pancreatitis without necrosis or infection (principal); F10.230 Alcohol dependence with withdrawal, uncomplicated; R00.0 Tachycardia, unspecified; E11.9 Type 2 diabetes mellitus without complications; E87.1 Hypo-osmolality and hyponatremia; F32.9 Major depressive disorder, single episode, unspecified; E78.5 Hyperlipidemia, unspecified; R10.9 Unspecified abdominal pain; Z86.711 Personal history of pulmonary embolism; R79.1 Abnormal coagulation profile; T45.515A Adverse effect of anticoagulants, initial encounter; E86.0 Dehydration; I10 Essential (primary) hypertension; F17.210 Nicotine dependence, cigarettes, uncomplicated; G40.909 Epilepsy, unspecified, not intractable, without status epilepticus; Z79.01 Long term (current) use of anticoagulants; Z86.718 Personal history of other venous thrombosis and embolism; F14.20 Cocaine dependence, uncomplicated; K76.0 Fatty (change of) liver, not elsewhere classified; R16.0 Hepatomegaly, not elsewhere classified; R00.1 Bradycardia, unspecified; R01.1 Cardiac murmur, unspecified
CPT/HCPCS: 36415; 71046-TC-FY; 76705-TC; 80048; 80053; 82962; 83615; 83690; 83735; 84100; 84478; 84484; 85025; 85027; 85610; 93005; 93010; 97116-GP; 97161-GP; 99285-25; J7030

== ENCOUNTER 2018-08-31 16:04 | Inpatient (IN) | payer OTHER ==
--- NOTE | 2018-08-31 16:03 | HP ---
[facility]AUNA [facility] Rehab Assess/Revision - Admission History Admitted to Rehab from: Medical/Surgical (Patient was evaluated 08/28/18 - for abdominal pain at [facility]. Returns to continue rehab.) - Findings Detox History & Physical reviewed: Yes Concur with findings: Yes Inpatient Rehab Admission - Initial Determination Are CD services needed?: Yes Free of communicable disease: Yes Not in need of hospitalization: Yes - Rehab Admission Criteria Previous failed treatment: Yes Poor recovery environment: Yes Comorbidities: Yes Patient is meeting Inpatient Rehab admission criteria:: Yes
--- NOTE | 2018-08-31 16:07 | PN ---
[facility] Progress Note Note: Patient medically stable. Returns after admission to [facility] for abdominal pain 08/28/18 - 08/31/18 to continue rehabilitation. The following recommendations were made at [facility] upon discharge: General NAD Abdomen soft NT/ND ASSESSMENT AND PLAN: 52yo M with PMH HTN, dyslipidemia, DVT/PE s/p IVC filter on coumadin, seizure, DM and continuous polysubstence abuse presented to the Er with abdominal pain x2 days 1. Acute pancreatitis-due to ETOH. improved. tolerating regular dit. 2. Supratherpeutic INR- labile INR. INR therpaeutic. cont coumadin 7.5mg. should have INR check in 2 days. pt should d/w with PMD if would be a candidate for NOAC therapy given his difficulty controlling his INR 3. hyponatremia- dehydration. resolved 4. HTN- controlled. 5. dyslipidemia- statin 6. DVT/PE s/p IVC filter- never had hypercoagulability workup. encouraged to f/ u with heme as outpatient for testing. especially since he had family members with VTE 7. seizure- one episode in 2013. unclear etiology but claims not from ETOH or BZD withdrawal. no recurrence since then. 8. DM- hold oral agents. start BGM, ISS, will reduce levemir dose as NPO 9. Continuous polysubstance abuse- ETOH and cocaine (inhalation). at [facility] completed detox and currently in inpatient rehab. desires to return when medically stable. watch for signs of withdrawal. educated on risks assoc if he was to return to substance abuse. verbalized understanding 10. DVT ppx- coumadin 11. d/c to [facility] to complete inpatient rehab - Continue rehab - continue to monitor
[2018-08-31] MEDS ORDERED: IBUPROFEN 400 MG TABLET (FP) PO PRN (16:09)
[2018-08-31] MEDS ORDERED: MAG HYDROX/AL HYDROX/SIMETH 30 ML UNIT-DOSE CUP PO PRN (16:09)
[2018-08-31] MEDS ORDERED: LOPERAMIDE HCL 2 MG CAPSULE PO PRN (16:09)
[2018-08-31] MEDS ORDERED: P-EPHED 60MG/TRIPROLIDI 2.5MG TABLET PO PRN (16:09)
[2018-08-31] MEDS ORDERED: MAGNESIUM HYDROX 2400MG/30ML ORAL SUSPENSION 30 ML CUP PO PRN (16:09)
[2018-08-31] MEDS ORDERED: MAGNESIUM CITRATE 300 ML BOTTLE PO PRN (16:09)
[2018-08-31] MEDS ORDERED: guaiFENesin/D-METHORPHAN HB 10 ML UNIT-DOSE CUPS PO PRN (16:09)
[2018-08-31] MEDS ORDERED: MENTHOL/PHENOL 1 EACH UD MM PRN (16:09)
[2018-08-31] MEDS: metFORMIN HCL 500 MG TABLET (FP) PO SCH (16:45)
[2018-08-31] MEDS ORDERED: WARFARIN NA 2.5 MG TABLET (FP) PO SCH (18:00)
[2018-08-31] MEDS: diphenhydrAMINE HCL 50 MG CAPSULE PO SCH (21:33)
[2018-08-31] MEDS: THIAMINE HCL 100 MG TABLET (FP) PO SCH (21:33)
[2018-08-31] MEDS ORDERED: MELATONIN 5 MG TABLETS PO PRN (22:00)
[2018-09-01] MEDS: ACETAMINOPHEN 325 MG TABLET (FP) PO PRN ×2 (00:25→08:20)
[2018-09-01] MEDS: metFORMIN HCL 500 MG TABLET (FP) PO SCH ×2 (05:59→17:02)
[2018-09-01] MEDS: LISINOPRIL 10 MG TABLET (FP) PO SCH (05:59)
[2018-09-01] MEDS: ASPIRIN COATED 81 MG TABLET.EC PO SCH (08:19)
[2018-09-01] MEDS: HYDROCHLOROTHIAZIDE 25 MG TABLET (FP) PO SCH (09:57)
[2018-09-01] MEDS: PRENATAL VITAMINS W/ FOLIC ACID TABLET (FP) PO SCH (09:57)
--- NOTE | 2018-09-01 11:47 | PN ---
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 Current Medications: Active Medications Generic Name Dose Route Start Last Admin Trade Name Freq PRN Reason Stop Dose Admin Acetaminophen 650 mg 08/31/18 16:11 09/01/18 08:20 Tylenol - PO 650 mg Q6H PRN Administration PAIN Al Hydroxide/Mg Hydroxide 30 ml 08/31/18 16:09 Mylanta Oral Suspension - PO Q6H PRN DYSPEPSIA Aspirin 81 mg 09/01/18 07:00 09/01/18 08:19 Ecotrin - PO 81 mg AM JOSS Administration Diphenhydramine HCl 50 mg 08/31/18 22:00 08/31/18 21:33 Benadryl - PO 50 mg HS JOSS Administration Eucalyptus/Menthol/Phenol/Sorbitol 1 each 08/31/18 16:09 Cepastat Lozenge - MM Q4H PRN SORE THROAT Guaifenesin 10 ml 08/31/18 16:09 Robitussin Dm - PO Q6H PRN COUGH Hydrochlorothiazide 25 mg 09/01/18 10:00 09/01/18 09:57 Hctz - PO 25 mg DAILY JOSS Administration Lisinopril 10 mg 09/01/18 07:00 09/01/18 05:59 Prinivil PO 10 mg AM JOSS Administration Loperamide HCl 4 mg 08/31/18 16:09 Imodium - PO Q6H PRN DIARRHEA Magnesium Citrate 300 ml 08/31/18 16:09 Citroma - PO Q48H PRN CONSTIPATION Magnesium Hydroxide 30 ml 08/31/18 16:09 Milk Of Magnesia - PO DAILY PRN CONSTIPATION Melatonin 5 mg 08/31/18 22:00 Melatonin PO HS PRN INSOMNIA Metformin HCl 500 mg 08/31/18 16:30 09/01/18 05:59 Glucophage - PO 500 mg BIDAC JOSS Administration Multivit/Folic Acid/Iron 1 tab 09/01/18 10:00 09/01/18 09:57 Vitamins (Sjr) - PO 1 tab DAILY JOSS Administration Pseudoephedrine/Triprolidine 1 combo 08/31/18 16:09 Actifed - PO TID PRN NASAL CONGESTION Thiamine HCl 100 mg 08/31/18 22:00 08/31/18 21:33 Vitamin B1 - PO 100 mg HS JOSS Administration Warfarin Sodium 7.5 mg 08/31/18 18:00 08/31/18 18:17 Coumadin - PO 7.5 mg DAILY@1800 JOSS Administration Current Side Effect: No Lab tests ordered: Yes Lab tests reviewed: Yes Provider note:: Patient was readmitted to this unit on 08/31/18. He was transferred back from [facility] where he was referred on 08/28/18 for evaluation of abdominal pain. He was diagnosed with acute pancreatitis and treated as such. As he became medically stable, he was transferred back yesterday evening Total face to face time:: 25 Mental Status Exam - Mental Status Exam Alert and Oriented to: Time, Place, Person Cognitive Function: Fair Patient Appearance: Well Groomed Patient Behavior: Cooperative Speech Pattern: Clear Voice Loudness: Normal Thought Process: Intact, Goal Oriented Thought Disorder: Not Present Hallucinations: Denies Suicidal Ideation: Denies Homicidal Ideation: Denies Insight/Judgement: Fair Sleep: Fair Appetite: Good Muscle strength/Tone: Normal Gait/Station: Normal Psychiatric Treatment Plan - Problem List (1) Alcohol dependence Current Visit: Yes (2) Cocaine dependence Current Visit: Yes (3) Nicotine dependence Current Visit: No (4) Bipolar II disorder Current Visit: No Initial treatment plan: 1) Continue Zoloft 100 mg po daily and Remeron 45 mg po HS. 2) Monitor progress
[2018-09-01] MEDS: SERTRALINE HCL 50 MG TABLET (FP) PO SCH (12:59)
[2018-09-01] MEDS: WARFARIN NA 7.5 MG TABLET (FP) PO SCH (17:02)
[2018-09-01] MEDS ORDERED: MIRTAZAPINE 30 MG TABLET (FP) PO ONE (21:17)
[2018-09-01] MEDS ORDERED: MIRTAZAPINE 15 MG TABLET (FP) ONE (21:17)
[2018-09-01] MEDS ORDERED: MIRTAZAPINE 30 MG TABLET (FP) PO SCH (22:00)
[2018-09-01] MEDS: THIAMINE HCL 100 MG TABLET (FP) PO SCH (22:15)
[2018-09-01] MEDS: diphenhydrAMINE HCL 50 MG CAPSULE PO SCH (22:15)
[2018-09-01] MEDS: MIRTAZAPINE 15 MG, MIRTAZAPINE 30 MG PO SCH (22:15)
[2018-09-02] MEDS: LISINOPRIL 10 MG TABLET (FP) PO SCH (06:32)
[2018-09-02] MEDS: metFORMIN HCL 500 MG TABLET (FP) PO SCH ×2 (06:32→18:05)
[2018-09-02] MEDS: ASPIRIN COATED 81 MG TABLET.EC PO SCH (06:32)
[2018-09-02] MEDS: ACETAMINOPHEN 325 MG TABLET (FP) PO PRN ×3 (08:26→21:40)
[2018-09-02] MEDS ORDERED: PT OWN MED DRAWER 7, Y5N ONE ×2 (09:04→17:10)
[2018-09-02] MEDS: HYDROCHLOROTHIAZIDE 25 MG TABLET (FP) PO SCH (10:30)
[2018-09-02] MEDS: SERTRALINE HCL 50 MG TABLET (FP) PO SCH (10:30)
[2018-09-02] MEDS: PRENATAL VITAMINS W/ FOLIC ACID TABLET (FP) PO SCH (10:30)
[2018-09-02] MEDS: WARFARIN NA 7.5 MG TABLET (FP) PO SCH (18:05)
[2018-09-02] MEDS ORDERED: MIRTAZAPINE 15 MG TABLET (FP) ONE (19:38)
[2018-09-02] MEDS ORDERED: MIRTAZAPINE 30 MG TABLET (FP) PO ONE (19:38)
[2018-09-02] MEDS: MIRTAZAPINE 15 MG, MIRTAZAPINE 30 MG PO SCH (21:38)
[2018-09-02] MEDS: diphenhydrAMINE HCL 50 MG CAPSULE PO SCH (21:38)
[2018-09-02] MEDS: THIAMINE HCL 100 MG TABLET (FP) PO SCH (21:38)
[2018-09-03] MEDS: ASPIRIN COATED 81 MG TABLET.EC PO SCH (06:26)
[2018-09-03] MEDS: LISINOPRIL 10 MG TABLET (FP) PO SCH (06:26)
[2018-09-03] MEDS: metFORMIN HCL 500 MG TABLET (FP) PO SCH ×2 (06:27→16:48)
[2018-09-03] MEDS: ACETAMINOPHEN 325 MG TABLET (FP) PO PRN ×2 (08:00→21:51)
[2018-09-03] MEDS: HYDROCHLOROTHIAZIDE 25 MG TABLET (FP) PO SCH (10:00)
[2018-09-03] MEDS: PRENATAL VITAMINS W/ FOLIC ACID TABLET (FP) PO SCH (10:00)
[2018-09-03] MEDS: SERTRALINE HCL 50 MG TABLET (FP) PO SCH (10:00)
[2018-09-03 10:18] LABS: INR 2.12 (0.83-1.09); PROTHROMBIN TIME (PATIENT) 25.2 SEC (9.7-13.0)
--- NOTE | 2018-09-03 11:44 | PN ---
Psychiatric Progress Note Vital Signs: Vital Signs Period Temp Pulse Resp BP Sys/Farr Pulse Ox Last 24 Hr 97.5 F 90-94 16-20 136-138/85-90 Date of Session: 09/03/18 Chief Complaint:: Discharge Note HPI: Patient addressing Alcohol and Cocaine Dependence comorbid with Nicotine Dependence, Bipolar Disorder, Substance-Induced Mood Disorder and Substance- Induced Sleep Disorder ROS: HTN, HLD, Type 2 DM were medically managed Current Medications: Active Medications Generic Name Dose Route Start Last Admin Trade Name Freq PRN Reason Stop Dose Admin Acetaminophen 650 mg 08/31/18 16:11 09/03/18 08:00 Tylenol - PO 650 mg Q6H PRN Administration PAIN Al Hydroxide/Mg Hydroxide 30 ml 08/31/18 16:09 Mylanta Oral Suspension - PO Q6H PRN DYSPEPSIA Aspirin 81 mg 09/01/18 07:00 09/03/18 06:26 Ecotrin - PO 81 mg AM JOSS Administration Diphenhydramine HCl 50 mg 08/31/18 22:00 09/02/18 21:38 Benadryl - PO 50 mg HS JOSS Administration Eucalyptus/Menthol/Phenol/Sorbitol 1 each 08/31/18 16:09 Cepastat Lozenge - MM Q4H PRN SORE THROAT Guaifenesin 10 ml 08/31/18 16:09 Robitussin Dm - PO Q6H PRN COUGH Hydrochlorothiazide 25 mg 09/01/18 10:00 09/03/18 10:00 Hctz - PO 25 mg DAILY JOSS Administration Lisinopril 10 mg 09/01/18 07:00 09/03/18 06:26 Prinivil PO 10 mg AM JOSS Administration Loperamide HCl 4 mg 08/31/18 16:09 Imodium - PO Q6H PRN DIARRHEA Magnesium Citrate 300 ml 08/31/18 16:09 Citroma - PO Q48H PRN CONSTIPATION Magnesium Hydroxide 30 ml 08/31/18 16:09 Milk Of Magnesia - PO DAILY PRN CONSTIPATION Melatonin 5 mg 08/31/18 22:00 Melatonin PO HS PRN INSOMNIA Metformin HCl 500 mg 08/31/18 16:30 09/03/18 06:27 Glucophage - PO 500 mg BIDAC JOSS Administration Mirtazapine 15 mg/ Mirtazapine 45 mg 09/01/18 22:00 09/02/18 21:38 30 mg PO 45 mg HS JOSS Administration Multivit/Folic Acid/Iron 1 tab 09/01/18 10:00 09/03/18 10:00 Vitamins (Sjr) - PO 1 tab DAILY JOSS Administration Pseudoephedrine/Triprolidine 1 combo 08/31/18 16:09 Actifed - PO TID PRN NASAL CONGESTION Sertraline HCl 200 mg 09/01/18 12:00 09/03/18 10:00 Zoloft - PO 200 mg DAILY JOSS Administration Thiamine HCl 100 mg 08/31/18 22:00 09/02/18 21:38 Vitamin B1 - PO 100 mg HS JOSS Administration Warfarin Sodium 7.5 mg 09/01/18 16:42 09/02/18 18:05 Coumadin - PO 7.5 mg DAILY@1800 JOSS Administration Current Side Effect: No Lab tests ordered: Yes Lab tests reviewed: Yes Provider note:: Patient will complete this program on 09/04/18. He has met his treatment goals and will continue to address his issues in [place] residential treatment at [facility]. 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 He responded well to Zoloft 200 mg po daily and Remeron 45 mg po HS. Scripts for these medications will be electronically transmitted to [facility] at [address] [place] [address]. He is stable for discharge on Total face to face time:: 35 Mental Status Exam - Mental Status Exam Alert and Oriented to: Time, Place, Person Cognitive Function: Fair Patient Appearance: Well Groomed Mood: Hopeful, Euthymic Affect: Appropriate Patient Behavior: Cooperative Speech Pattern: Clear Voice Loudness: Normal Thought Process: Intact, Goal Oriented Thought Disorder: Not Present Hallucinations: Denies Suicidal Ideation: Denies Homicidal Ideation: Denies Insight/Judgement: Fair Sleep: Fair Appetite: Good Muscle strength/Tone: Normal Gait/Station: Normal Psychiatric Treatment Plan - Problem List (1) Alcohol dependence Current Visit: Yes (2) Cocaine dependence Current Visit: Yes (3) Nicotine dependence Current Visit: No (4) Bipolar II disorder Current Visit: No Initial treatment plan: Patient will be discharged tomorrow and referred to [facility] [place] [facility] [place]
[2018-09-03] MEDS ORDERED: CYCLOBENZAPRINE HCL 10 MG TABLET (FP) PO ONE (15:49)
[2018-09-03] MEDS: WARFARIN NA 7.5 MG TABLET (FP) PO SCH (17:11)
[2018-09-03] MEDS: THIAMINE HCL 100 MG TABLET (FP) PO SCH (21:48)
[2018-09-03] MEDS ORDERED: MIRTAZAPINE 30 MG TABLET (FP) PO ONE (21:50)
[2018-09-03] MEDS ORDERED: MIRTAZAPINE 15 MG TABLET (FP) ONE (21:50)
[2018-09-03] MEDS: CYCLOBENZAPRINE HCL 10 MG TABLET (FP) PO SCH (21:51)
[2018-09-03] MEDS: diphenhydrAMINE HCL 50 MG CAPSULE PO SCH (21:51)
[2018-09-03] MEDS: MIRTAZAPINE 15 MG, MIRTAZAPINE 30 MG PO SCH (21:52)
[2018-09-03] MEDS ORDERED: ATORVASTATIN CA 20 MG TABLET (FP) PO SCH (22:00)
[2018-09-04] MEDS: CYCLOBENZAPRINE HCL 10 MG TABLET (FP) PO SCH (06:46)
[2018-09-04] MEDS: metFORMIN HCL 500 MG TABLET (FP) PO SCH (06:46)
[2018-09-04] MEDS: LISINOPRIL 10 MG TABLET (FP) PO SCH (06:46)
[2018-09-04 07:26] VITALS: TEMP 97.9
[2018-09-04] MEDS: ASPIRIN COATED 81 MG TABLET.EC PO SCH (08:02)
[2018-09-04] MEDS: HYDROCHLOROTHIAZIDE 25 MG TABLET (FP) PO SCH (09:01)
[2018-09-04] MEDS: SERTRALINE HCL 50 MG TABLET (FP) PO SCH (09:01)
[2018-09-04] MEDS: PRENATAL VITAMINS W/ FOLIC ACID TABLET (FP) PO SCH (09:01)
[2018-09-04] MEDS: ACETAMINOPHEN 325 MG TABLET (FP) PO PRN (09:03)
[2018-09-04 10:08] VITALS: BP 133/85; PULSE 101
== END 2018-09-04 09:45 | disposition home or self-care (01) | DRG 772 ==
LOC: YASAS 16:04 → Y3W 16:05
PROVIDERS: ADMIT Psychiatry & Neurology Psychiatry; ATTEND Psychiatry & Neurology Psychiatry
PROC: HZ42ZZZ Group Counseling for Substance Abuse Treatment, Cognitive-Behavioral (ICD-10-PCS; principal; 2018-08-31)
DX: F10.20 Alcohol dependence, uncomplicated (principal); F14.20 Cocaine dependence, uncomplicated; F17.210 Nicotine dependence, cigarettes, uncomplicated; F31.81 Bipolar II disorder; I10 Essential (primary) hypertension; E78.5 Hyperlipidemia, unspecified; E11.9 Type 2 diabetes mellitus without complications; K85.90 Acute pancreatitis without necrosis or infection, unspecified; E87.1 Hypo-osmolality and hyponatremia; E86.0 Dehydration; Z86.69 Personal history of other diseases of the nervous system and sense organs; Z86.711 Personal history of pulmonary embolism; Z86.718 Personal history of other venous thrombosis and embolism; Z95.828 Presence of other vascular implants and grafts; Z79.01 Long term (current) use of anticoagulants; Z59.0 Homelessness
CPT/HCPCS: 36415; 82962; 85610